=== PATIENT | female | born 1975 | race Caucasian/White ===

== ENCOUNTER 2022-03-30 14:47 | Outpatient (REF) | payer OTHER, SELFPAY ==
[2022-04-02 18:24] LABS: HPV mRNA E6/E7 rflx Not Detected (Not Detected)
== END 2022-03-30 14:48 | disposition home or self-care (01) ==
LOC: HO.LNP 14:47
PROVIDERS: PCP Internal Medicine; Visit Provider Obstetrics & Gynecology
DX: Z01.419 Encounter for gynecological examination (general) (routine) without abnormal findings (principal)
CPT/HCPCS: 87624; 88142

== ENCOUNTER 2022-05-20 10:28 | Outpatient (REF) | payer OTHER, SELFPAY ==
--- NOTE | ~2022-05-20 | MM_ITS ---
EXAMINATION: MM SCREENING DIGITAL BREAST TOMOSYNTHESIS, BILATERAL CLINICAL INFORMATION: Screening. Asymptomatic. Age 46. No prior breast imaging. The lifetime risk of breast cancer based on the Tyrer-Cuzick Model is 13%. COMPARISON: None (current study represents initial baseline exam). TECHNIQUE: Digital breast tomosynthesis is performed in both the craniocaudal and mediolateral oblique views along with computer-aided detection (CAD). Synthesized 2D images are generated from the tomosynthesis. FINDINGS: The breasts are extremely dense, which lowers the sensitivity of mammography (ACR BI-RADS breast composition Category d). There are no significant masses, abnormal calcifications, or other abnormalities. The axilla and skin contours are unremarkable. MM/MM tomosynthesis screening BI IMPRESSION: No mammographic evidence of malignancy. ASSESSMENT: BI-RADS 1: Negative RECOMMENDATION: Routine annual mammography screening. This patient's information was entered into a reminder system with a target due date for their next mammogram.
== END 2022-05-20 10:29 | disposition home or self-care (01) ==
LOC: HO.MAMMO 10:28
PROVIDERS: PCP Internal Medicine; Visit Provider Obstetrics & Gynecology
DX: Z12.31 Encounter for screening mammogram for malignant neoplasm of breast (principal)
CPT/HCPCS: 77063; 77067

== ENCOUNTER 2022-06-30 13:39 | Emergency (ER) | payer OTHER, SELFPAY ==
[2022-06-30 13:45] VITALS: BP 107/61; PULSE 96; RESP 16; TEMP 36.6; O2SAT 97; BMI 29.0
--- NOTE | 2022-06-30 13:47 | ED_ITS ---
HPI - General Adult General Chief complaint: Skin/Abscess/Foreign Body <DONNA Tinoco Last Filed: 06/30/22 14:31> Stated complaint: lump on head soreness <DONNA Tinoco Last Filed: 06/30/22 14:31> Time Seen by Provider: 06/30/22 14:27 <DONNA Tinoco Last Filed: 06/30/22 14:31> Source: patient <DONNA Malone Last Filed: 06/30/22 16:04> Mode of arrival: ambulatory <DONNA Malone Last Filed: 06/30/22 16:04> History of Present Illness HPI narrative: 47-year-old female with past medical history of anxiety/panic disorder, OCD, presenting to the ED complaining of cyst/abscess to right scalp x years, increasing in size over the past week. Denies drainage from area, fever/chills <DONNA Malone Last Filed: 06/30/22 16:04> Onset (ago): unknown <DONNA Malone Last Filed: 06/30/22 16:04> Related Data Home medications: Previous Rx's Medication Instructions Recorded fluoxetine 20 mg capsule 40 mg PO DAILY #180 caps 04/12/21 triamcinolone acetonide 0.5 % See Rx Instructions topical BID 04/12/21 topical cream #15 grams <DONNA Tinoco Last Filed: 06/30/22 14:31> Allergies/adverse reactions: Allergies Allergy/AdvReac Type Severity Reaction Status Date / Time cefaclor [From CECLOR] Allergy Unknown RASH Verified 03/30/22 14:51 JALAPENO PEPPERS Allergy Severe ANAPHYLAXIS Uncoded 03/30/22 14:51 Ceclor Allergy Unknown rash Uncoded 03/30/22 14:51 jalapenos Allergy Unknown anaphalaxis Uncoded 03/30/22 14:51 <DONNA Tinoco Last Filed: 06/30/22 14:31> Review of Systems Review of Systems: Constitutional: No Fever, No Chills ENT/Mouth: No Ear Pain, No Nasal Congestion, No sore throat, No Rhinorrhea, No Swallowing Difficulty Cardiovascular: No Chest Pain, No SOB Respiratory: No Cough, No Sputum Gastrointestinal: No Nausea, No Vomiting, No Diarrhea, No Constipation, No Abdominal pain Genitourinary: No Dysuria, No Hematuria, No Urgency, No Flank Pain Musculoskeletal: No joint pain, No Myalgias, No Joint Swelling Skin: + Skin Lesions, No rash Neuro: No Weakness, No Numbness, No Paresthesias <DONNA Malone - Last Filed: 06/30/22 16:04> Yes all other systems are reviewed and are negative <DONNA Malone - Last Filed: 06/30/22 16:04> Constitutional: Constitutional: Reports as per HPI <DONNA Malone - Last Filed: 06/30/22 16:04> [facility] Past Medical History Attestation statement: The following information was validated with the patient. <DONNA Malone - Last Filed: 06/30/22 16:04> Medical History: Medical History Panic disorder <DONNA Tinoco - Last Filed: 06/30/22 14:31> Surgical History: Surgical History History of cholecystectomy <DONNA Tinoco - Last Filed: 06/30/22 14:31> Family History Family History: Family History Mother No problems noted. Father No problems noted. <DONNA Tinoco - Last Filed: 06/30/22 14:31> Social History Social History: Social History Housing: Apartment Patient Tobacco Use Status: Never used Tobacco e-Cigarette/Vaping Use: Never Used Second Hand Smoke Exposure: No Advance Directives: No Advance Directives Information Provided: Yes service: No Current occupational status: disabled Cognitive needs: No Hearing needs: No Vision needs: No <DONNA Tinoco - Last Filed: 06/30/22 14:31> Physical Exam ED Vital Signs: Vital Signs - 24 hr 06/30/22 13:45 Temperature 98 F Pulse Rate 96 Respiratory Rate 16 Blood Pressure 107/61 Pulse Oximetry 97 Oxygen Delivery Method Room Air BMI result Body Mass Index 29.0 <DONNA Tinoco - Last Filed: 06/30/22 14:31> Vital Signs - 24 hr 06/30/22 13:45 Temperature 98 F Pulse Rate 96 Respiratory Rate 16 Blood Pressure 107/61 Pulse Oximetry 97 Oxygen Delivery Method Room Air BMI result Body Mass Index 29.0 <DONNA Malone - Last Filed: 06/30/22 16:04> Const General: cooperative, healthy appearing and no acute distress <DONNA Malone Last Filed: 06/30/22 16:04> Orientation/consciousness: patient oriented x3 <DONNA Malone Last Filed: 06/30/22 16:04> Limitations: no limitations <DONNA Malone - Last Filed: 06/30/22 16:04> HENMT Other: + small cyst with central fluctuance noted to right scalp/mastoid area. No overlying erythema, no induration, no warmth <DONNA Malone Last Filed: 06/30/22 16:04> Head: Yes normal to inspection, Yes atraumatic, No Reza's sign and No raccoon eyes <DONNA Malone Last Filed: 06/30/22 16:04> Ears: hearing grossly normal bilaterally <DONNA Malone - Last Filed: 06/30/22 16:04> General nose exam: Normal external nose present <DONNA Malone Last Filed: 06/30/22 16:04> Face and sinus: Yes normal facial exam <DONNA Malone Last Filed: 06/30/22 16:04> Eyes General: appearance normal, both eyes and all related structures <DONNA Malone Last Filed: 06/30/22 16:04> EOM: EOMs intact bilaterally <DONNA Malone - Last Filed: 06/30/22 16:04> Neck Neck: Yes normal visual inspection and Yes no meningeal signs <DONNA Malone Last Filed: 06/30/22 16:04> Resp Effort & Inspection: normal respiratory effort and no respiratory distress <DONNA Malone Last Filed: 06/30/22 16:04> Cardio Rate: regular rate <DONNA Malone Last Filed: 06/30/22 16:04> Heart sounds: S1 normal heart sound present and S2 normal heart sound present <DONNA Malone Last Filed: 06/30/22 16:04> Skin Rashes: no rashes <DONNA Malone Last Filed: 06/30/22 16:04> Neuro General: patient oriented x3, tone normal and no meningeal signs <DONNA Malone Last Filed: 06/30/22 16:04> Gait exam (Neuro): Normal gait present <DONNA Malone Last Filed: 06/30/22 16:04> Extrem General: Yes normal to inspection <DONNA Malone Last Filed: 06/30/22 16:04> Course Course Course Narrative: RME performed by Isabella Sanchez PA-C. Patient is a 47 year old assigned female at presenting to the emergency department with an abscess to the right scalp. Patient placed back in the waiting room pending room availability. <DONNA Tinoco Last Filed: 06/30/22 14:31> Medications Administered Discontinued Medications Generic Name Dose Route Start Last Admin Trade Name Freq PRN Reason Stop Dose Admin Lidocaine HCl 2 ml 06/30/22 14:41 06/30/22 14:58 Lidocaine Hcl 1 % Mpf 2 Ml Vial INFILTRATI 06/30/22 14:42 2 ml ONCE ONE Administration <DONNA Tinoco Last Filed: 06/30/22 14:31> Medications Administered Discontinued Medications Generic Name Dose Route Start Last Admin Trade Name Freq PRN Reason Stop Dose Admin Lidocaine HCl 2 ml 06/30/22 14:41 06/30/22 14:58 Lidocaine Hcl 1 % Mpf 2 Ml Vial INFILTRATI 06/30/22 14:42 2 ml ONCE ONE Administration <DONNA Malone Last Filed: 06/30/22 16:04> Procedures Abscess I/D Site: scalp <DONNA Malone Last Filed: 06/30/22 16:04> Side (if applicable): right <DONNA Malone Last Filed: 06/30/22 16:04> Local Anesthetic: lidocaine 1% <DONNA Malone Last Filed: 06/30/22 16:04> Amount of anesthesia used (mL): 1 <DONNA Malone Last Filed: 06/30/22 16:04> Technique: incised with blade <DONNA Malone - Last Filed: 06/30/22 16:04> Sent for culture/gram staining?: No <DONNA Malone Last Filed: 06/30/22 16:04> Packing used?: none <DONNA Malone - Last Filed: 06/30/22 16:04> Medical Decision Making Medical Decision Making MDM Narrative: 47-year-old female with past medical history of anxiety/panic disorder, OCD, presenting to the ED complaining of cyst/abscess to right scalp x years, increasing in size over the past week. On exam vital signs stable, NAD, nontoxi c appearing, concern for cyst vs abscess. No overlying cellulitis. Plan: I & D Please refer to course for remaining clinical decision making, interpretation of labs/imaging results, and discussions with consultants and/or family members. <DONNA Malone Last Filed: 06/30/22 16:04> Differential Diagnosis Differential Diagnoses: The differential diagnosis associated with the presentation includes <DONNA Malone Last Filed: 06/30/22 16:04> As above <DONNA Malone - Last Filed: 06/30/22 16:04> Admission/Observation Consideration of admission/observation: Escalation of care including admission/observation considered <DONNA Malone Last Filed: 06/30/22 16:04> Lab Data [facility] Lab Attestation statement: I reviewed the patient's lab results. <DONNA Malone Last Filed: 06/30/22 16:04> Radiology Impression Discussion of test interpretation with radiology: I have reviewed the radiologist's reading. <DONNA Malone Last Filed: 06/30/22 16:04> External Record Review External record reviewed: Inpatient record, Office record, Outpatient record, Prior outpatient labs, Prior outpatient radiology, Primary care record and Outside ED record <DONNA Malone Last Filed: 06/30/22 16:04> Discharge Plan Discharge Clinical Impression: Scalp cyst <DONNA Tinoco - Last Filed: 06/30/22 14:31> Patient Disposition: Home, Self-Care <DONNA Tinoco - Last Filed: 06/30/22 14:31> Instructions: Cyst (ED) <DONNA Tinoco - Last Filed: 06/30/22 14:31> Additional Instructions: Your cyst is drain today in the emergency department. Please follow-up with dermatology Keep a close eye on the area, if increases in size, develops redness, pus drainage or fever return to the ED <DONNA Tinoco - Last Filed: 06/30/22 14:31> Prescriptions: No Action fluoxetine 20 mg capsule 40 mg PO DAILY Qty: 180 8RF triamcinolone acetonide 0.5 % cream See Rx Instructions topical BID Qty: 15 8RF Rx Instructions: apply topical 2 times a day; <DONNA Tinoco - Last Filed: 06/30/22 14:31> Referrals: Minnie Patricio PA [Physician [employer]] - David Clark MD [Physician] - Evy Dixon PA-C [Physician [employer]] - Dorene Friend PA-C [Physician [employer]] - <DONNA Tinoco - Last Filed: 06/30/22 14:31>
[2022-06-30] MEDS: Lidocaine HCl 1 % MPF 2 ML VIAL INFILTRATI (14:58)
== END 2022-06-30 16:10 | disposition home or self-care (01) ==
PROVIDERS: Emergency Provider Emergency Medicine; PCP Internal Medicine
DX: L02.811 Cutaneous abscess of head [any part, except face] (principal); L72.9 Follicular cyst of the skin and subcutaneous tissue, unspecified; Z79.899 Other long term (current) drug therapy
CPT/HCPCS: 10060; 99282; 99284

== ENCOUNTER 2023-04-03 15:30 | Outpatient (AMB) | payer OTHER, SELFPAY ==
--- NOTE | 2023-04-03 15:43 | A.OFFVIS_ITS ---
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 No complaints. Last Pap/HPV was negative in 04/17 Last Mammogram was BI-RADS 1 in 05/18 No previous screening colonoscopy [facility] Medical History Panic disorder Surgical History History of cholecystectomy Family History Mother No problems noted. Father No problems noted. Social History Household Members: Family Housing: Apartment Alcohol intake: current Alcohol intake frequency: holidays/special occasions only Patient Tobacco Use Status: Never used Tobacco e-Cigarette/Vaping Use: Never Used Second Hand Smoke Exposure: No service: No Current occupational status: disabled Sexual orientation: Straight/Heterosexual Gender identity: Female Cognitive needs: No Hearing needs: No Vision needs: No Female Reproductive History Menstrual Age of Menarche: 14 Date of last menstrual period: 03/22/23 Total pregnancies: 0 Date of last pap smear: 03/31/22 Date of Mammogram: 05/20/22 Review of Systems Const All systems reviewed & are unremarkable except as noted in HPI and below Card Reports as per HPI Resp Reports as per HPI GI Reports as per HPI and Reports no additional complaints Reports as per HPI Physical Exam Vital Signs: BMI result Body Mass Index 31.5 Const General: cooperative, healthy appearing and comfortable Chest Chest palpation & inspection: normal inspection of the chest and normal palpation of entire chest wall Breast/axilla inspection: normal inspection of the breasts and normal inspection of the axillae Breast/axilla palpation: normal palpation of the breasts, normal palpation of the axillae and no axillary lymphadenopathy Resp Effort & Inspection: normal respiratory effort Auscultation: clear to auscultation bilaterally Percussion: percussion normal Cardio Palpation: normal PMI Rate: regular rate Rhythm: regular rhythm Heart sounds: no murmurs and no rubs Peripheral pulses: Peripheral pulses 2+ throughout GI Inspection: Yes normal to inspection Palpation (GI): Soft to palpation, nontender, no guarding, not rigid and No hepatosplenomegaly present Percussion: Yes normal to percussion Auscultation: normal bowel sounds Rectal Exam - Female: deferred General: Yes bladder normal to palpation External Female Exam: No lesion Speculum Exam - Vagina: normal appearance of the vagina, normal palpation, normal vaginal discharge and not erythematous Speculum Exam - Cervix: normal appearance of the cervix and normal palpation Bimanual exam- vagina & uterus: normal bimanual exam, normal palpation, uterine size normal, bladder normal to palpation, consistency normal and normal palpation Bimanual Exam- Adnexa, other: normal adnexae, no masses and no tenderness Assessment & Plan Assessment & Plan (1) Well woman exam: Code(s): Z01.419 - Encounter for gynecological examination (general) (routine) without abnormal findings Plan: Co testing not indicated this year. Counseled the patient about the recommended dietary allowance of 1200 mg of Calcium & 600 IU of vitamin D. Mammogram ordered for 05/19. The patient was referred to GI for screening colonoscopy . The patient was instructed to perform monthly self-breast exams and schedule annual exam in a year. All questions answered and the patient verbalized understanding. Orders: Orders MM tomosynthesis screening BI Today Z12.31 - Encounter for screening mammogram for malignant neoplasm of breast Referrals Gastroenterology Referral Z12.11 - Encounter for screening for malignant neoplasm of colon Coding Level of Care Code Est Pt Prev Care 40-64y(27033) Diagnoses Well woman exam Z01.419
[2023-04-03 15:44] VITALS: BP 108/66; BMI 31.5
== END 2023-04-03 16:08 | disposition home or self-care (01) ==
LOC: HO.HWS 15:30
PROVIDERS: PCP Internal Medicine; Visit Provider Obstetrics & Gynecology
DX: Z01.419 Encounter for gynecological examination (general) (routine) without abnormal findings (principal)
CPT/HCPCS: 99396

== ENCOUNTER → 2023-04-03 15:30 | Outpatient (BNVA) | payer OTHER, SELFPAY | PROVIDERS: PCP Internal Medicine; Visit Provider Obstetrics & Gynecology ==

== ENCOUNTER → 2023-05-29 14:33 | Outpatient (BNVA) | payer OTHER, SELFPAY | PROVIDERS: PCP Internal Medicine; Visit Provider Nurse Practitioner Family ==

== ENCOUNTER 2023-08-10 14:31 | Outpatient (AMB) | payer OTHER, SELFPAY ==
[2023-08-10 14:35] VITALS: BP 124/80; PULSE 145; O2SAT 99; BMI 31.3
--- NOTE | 2023-08-10 14:35 | MHC.OFFWIV ---
Intake Vital Signs 08/10/23 14:35 Height 5 ft 6 in Weight 194 lb 2 oz BMI 31.3 BP 124/80 Blood Pressure Location Lt brachial Position Sitting Pulse 145 H Pulse Source Pulse Oximeter Pulse Oximetry (%) 99 Oxygen Delivery Method Room Air Intake Visit Reasons: EP Evaluation for meds Intake Note: Pt presents to the office today for c/o medication refills. She states she has gone to long without seeing her PCP and has an appt with her PCP in August. Patient Tobacco Use Status: Never used Tobacco Allergies JALAPENO PEPPERS Allergy (Severe, Uncoded 08/10/23 14:38) ANAPHYLAXIS Ceclor Allergy (Unknown, Uncoded 08/10/23 14:38) rash HPI HPI Comments History of Present Illness Details 48 y/o female patient who presents to walk in clinic today for medication refills. Pt asking for Refill on Fluoxetine, she ran out of medications. She has an upcoming appointment with her PCP in August. [facility] Medical History Panic disorder Surgical History History of cholecystectomy Family History Mother No problems noted. Father No problems noted. Social History Household Members: Family Housing: Apartment Alcohol intake: current Alcohol intake frequency: holidays/special occasions only Patient Tobacco Use Status: Never used Tobacco e-Cigarette/Vaping Use: Never Used Second Hand Smoke Exposure: No service: No Current occupational status: disabled Sexual orientation: Straight/Heterosexual Gender identity: Female Cognitive needs: No Hearing needs: No Vision needs: No Female Reproductive History Menstrual Age of Menarche: 14 Review of Systems Const All systems reviewed & are unremarkable except as noted in HPI and below Physical Exam Vital Signs: Last Vital Signs Pulse 145 H 08/10/23 14:35 BP 124/80 08/10/23 14:35 Pulse Ox 99 08/10/23 14:35 Oxygen Delivery Method Room Air 08/10/23 14:35 BMI result Body Mass Index 31.3 Const General: comfortable and no acute distress Orientation/consciousness: patient oriented x3 Neuro General: patient oriented x3, gait normal and moves all extremities Psych Speech and movement: Normal speech and movement present Affect: normal affect Attitude: cooperative Thought process: Normal thought process present Assessment & Plan Assessment & Plan (1) Panic disorder: Code(s): F41.0 - Panic disorder [episodic paroxysmal anxiety] Plan: Refilled Fluoxetine for 90 days. Medications: Changed From fluoxetine 40 mg (2 x 20 mg) PO DAILY 180 caps 8RF F41.0 - Panic disorder [episodic paroxysmal anxiety] To fluoxetine 40 mg (2 x 20 mg) PO DAILY 90 days 180 caps 0RF F41.0 - Panic disorder [episodic paroxysmal anxiety] Coding Level of Care Code Est Pt Level 3 (63266) Diagnoses Panic disorder F41.0 Time Spent (min) 15
== END 2023-08-10 15:29 | disposition home or self-care (01) ==
PROVIDERS: PCP Internal Medicine; Visit Provider Nurse Practitioner Family
DX: F41.0 Panic disorder [episodic paroxysmal anxiety] (principal)
CPT/HCPCS: 99213

== ENCOUNTER 2023-09-21 14:30 | Outpatient (AMB) | payer OTHER, SELFPAY ==
[2023-09-21 14:39] VITALS: BP 120/76; PULSE 105; O2SAT 98; BMI 31.0
--- NOTE | 2023-09-21 14:39 | A.OFFPC_ITS ---
Vital Signs 09/21/23 14:39 Height 5 ft 6 in Weight 192 lb BMI 31.0 BP 120/76 Blood Pressure Location Lt brachial Position Sitting Pulse 105 H Pulse Source Pulse Oximeter Pulse Oximetry (%) 98 Oxygen Delivery Method Room Air Intake Visit Reasons: Annual Exam/ med f/u Electrical Subcontractor Required: No Naturopathic Oncology Provider: Not Required per policy Accompanied by: Self / Same As Patient Allergies JALAPENO PEPPERS Allergy (Severe, Uncoded 09/21/23 14:40) ANAPHYLAXIS Ceclor Allergy (Unknown, Uncoded 09/21/23 14:40) rash Medication List - Last Reconciled 09/24/23 by Dion Villalobos MD bisacodyl (Dulcolax (bisacodyl)) 10 mg (2 x 5 mg) PO BEDTIME COVID-19 antigen test (BinaxNOW COVID-19 Ag Card kit) As directed fluoxetine 40 mg (2 x 20 mg) PO DAILY 90 days polyethylene glycol 3350 (Miralax) 238 grams PO ONCE triamcinolone acetonide 0.5% apply topical 2 times a day; Tobacco use date assessed: 09/21/23 Dental Screening Dental Screen Date: 09/21/23 Did you have a dental visit in the last 12 months?: No Did you have a dental problem in the last 6 months where you did not have access to dental care?: No Was dental information given to patient?: Patient has dentist HPI Annual Exam/ med f/u HPI Details has OCD and sees therapist [facility] Medical History Panic disorder Surgical History History of cholecystectomy Family History Mother No problems noted. Father No problems noted. Social History Household Members: Family Housing: Apartment Alcohol intake: current Alcohol intake frequency: holidays/special occasions only Patient Tobacco Use Status: Never used Tobacco e-Cigarette/Vaping Use: Never Used Second Hand Smoke Exposure: No service: No Current occupational status: disabled Sexual orientation: Straight/Heterosexual Gender identity: Female Cognitive needs: No Hearing needs: No Vision needs: No Female Reproductive History Menstrual Age of Menarche: 14 Questionnaire PHQ-9 Over the last 2 weeks, how often have you been bothered by any of the following problems? 1. Little interest or pleasure in doing things: several days 2. Feeling down, depressed, or hopeless: several days 3. Trouble falling or staying asleep, or sleeping too much: several days 4. Feeling tired or having little energy: more than half the days 5. Poor appetite or overeating: several days 6. Feeling bad about yourself - or that you are a failure or have let yourself or your family down: several days 7. Trouble concentrating on things, such as reading the newspaper or watching television: not at all 8. Moving or speaking so slowly that other people could have noticed. Or the opposite - being so fidgety or restless that you have been moving around a lot more than usual: not at all 9. Thoughts that you would be better off or of hurting yourself in some way: not at all Total score: 7 Source: Developed by Drs. Gerardo Prince, An Coffey, Ron Sandoval and colleagues, with an educational wong from [employer]. Thrive Questionnaire Date Thrive assessed: 09/21/23 I am a: Patient What is your living situation today?: I have a steady place to live Within the past 12 months, did the food you bought not last and you didn't have the money to get more?: Never true Within the past 12 months, did you worry whether your food would run out before you got money to buy more?: Never true Do you have trouble paying for medicines?: No Do you have trouble getting transportation to medical appointments?: No Do you have trouble paying your heating and electricity bill?: No Do you have trouble taking care of your child, family member or friend?: No Do you have trouble with day-to-day activities such as bathing, preparing meals, shopping, managing finances, etc.?: No Are you currently unemployed and looking for a job?: No Are you interested in more education?: No Please select the resources that you would like help with: None THRIVE Score: 0 AUDIT C Alcohol Use Questionnaire (AUDIT-C) 1. How often do you have a drink containing alcohol?: Monthly or less 2. How many drinks containing alcohol do you have on a typical day when you are drinking?: 1 or 2 3. How often do you have six or more drinks on one occasion?: Never Total Score: 1 Score Reviewed/Action Taken: Yes JODIE-7 AMB Questionnaire JODIE-7 Date JODIE - 7 assessed: 09/21/23 Feeling nervous, anxious, or on edge: 1 = Several days Not being able to stop or control worryin = Several days Worrying too much about different things: 1 = Several days Trouble relaxin = Several days Being so restless that it is hard to sit still: 0 = Not at all Becoming easily annoyed or irritable: 1 = Several days Feeling afraid as if something awful might happen: 1 = Several days Total JODIE-7 score (0-4 normal; 5-9 mild; 10-14 moderate; 15-21 severe): 6 Source: Developed by Drs. Gerardo Prince, An Coffey, Ron Sandoval and colleagues, with an educational wong from [employer]. Review of Systems Const Denies chills, Denies fatigue, Denies headache(s) and Denies weight loss Eyes Denies change in vision, Denies diplopia and Denies eye pain ENT Denies vertigo, Denies dizziness, Denies headache(s) and Denies nasal discharge Card Denies chest pain, Denies rapid heart rate and Denies dyspnea on exertion Resp Denies chest congestion, Denies cough, Denies pain with cough and Denies dyspnea on exertion GI Denies abdominal pain, Denies hematochezia and Denies change in bowel habits Musc Denies myalgias, Denies arthralgias and Denies joint swelling Skin/Breast Denies lesions and Denies unusual bruising Neuro Denies vertigo, Denies dizziness, Denies headache(s) and Denies focal weakness Endo Denies fatigue Physical exam (Primary Care) Vital Signs: Last Vital Signs Pulse 105 H 09/21/23 14:39 BP 120/76 09/21/23 14:39 Pulse Ox 98 09/21/23 14:39 Oxygen Delivery Method Room Air 09/21/23 14:39 BMI result Body Mass Index 31.0 Tobacco/Smoking Status: Tobacco use Status Tobacco use date assessed 09/21/23 09/21/23 14:48 Patient Tobacco Use Status Never used Tobacco 09/21/23 14:48 e-Cigarette/Vaping Use Never Used 09/21/23 14:48 PHQ-9: PHQ-9 Score PHQ-9: Total score 7 09/21/23 14:48 Thrive Assessment: Date of Thrive Assessment Date Thrive assessed 09/21/23 09/21/23 14:48 Const General: cooperative, healthy appearing and no acute distress Orientation/consciousness: oriented to person, oriented to place and oriented to time HENMT Head: Yes normal to inspection, Yes normocephalic and Yes atraumatic Mouth: Normal oral and palatal mucosa present and tongue normal Throat: Yes posterior oropharynx normal and Yes uvula midline Eyes General: appearance normal, both eyes and all related structures Neck Neck: Yes normal visual inspection, Yes full ROM and Yes no lymphadenopathy Thyroid: Thyroid normal Carotids: normal carotid upstroke Chest Chest palpation & inspection: normal inspection of the chest Resp Effort & Inspection: normal respiratory effort and able to speak in complete sentences Auscultation: clear to auscultation bilaterally Cardio Jugular venous distension: no JVD Palpation: normal PMI Rate: regular rate Rhythm: regular rhythm Heart sounds: S1 normal heart sound present and S2 normal heart sound present GI Inspection: Yes normal to inspection Palpation (GI): Soft to palpation and No hepatosplenomegaly present Auscultation: normal bowel sounds General: Yes no CVA tenderness Back/Spine/Pelvis Back: no CVA tenderness Skin General skin exam: no rashes or lesions noted Neuro General: oriented to person, oriented to place and oriented to time Extrem General: Yes normal to inspection and Yes full ROM Assessment and Plan Assessment & Plan (1) Physical exam: Code(s): Z00.00 - Encounter for general adult medical examination without abnormal findings Plan: stable; do labs (2) OCD (obsessive compulsive disorder): Code(s): F42.9 - Obsessive-compulsive disorder, unspecified Plan: cont with therapy Orders: Orders Lipid Panel 09/21/23 Z13.220 - Encounter for screening for lipoid disorders Complete Blood Count Auto Diff 09/21/23 Z13.0 - Encounter for screening for diseases of the blood and blood-forming organs and certain disorders involving the immune mechanism Comprehensive [place]. Panel Fast 09/21/23 Z13.9 - Encounter for screening, unspecified Thyroid Stimulating Hormone 09/21/23 Z13.29 - Encounter for screening for other suspected endocrine disorder Medications: Refilled triamcinolone acetonide 0.5% apply topical 2 times a day; 15 grams 8RF fluoxetine 40 mg (2 x 20 mg) PO DAILY 90 days 180 caps 8RF F41.0 - Panic disorder [episodic paroxysmal anxiety] Coding Level of Care Code New Pt Prev Care 40-64y(85882) Diagnoses Physical exam Z00.00 OCD (obsessive compulsive disorder) F42.9 Additional Codes PHQ-9 - 38817 - PHQ-9 Billing: ([id number])
== END 2023-09-21 15:03 | disposition home or self-care (01) ==
PROVIDERS: PCP Internal Medicine; Visit Provider Internal Medicine
DX: Z00.00 Encounter for general adult medical examination without abnormal findings (principal); F42.9 Obsessive-compulsive disorder, unspecified
CPT/HCPCS: 99396

== ENCOUNTER 2023-12-11 11:00 | Day surgery (SDC) | payer OTHER, SELFPAY ==
--- NOTE | 2023-12-10 12:19 | P.CONAN_ITS ---
Documented by User: Kari Hannah NP 12/10/23 12:20 HPI - Anesthesia Eval Consult details Narrative: 48yo F for Colonoscopy PMFSH Active Problems Active Problems: All Active Problems Well woman exam (Acute) OCD (obsessive compulsive disorder) (Acute) Physical exam (Acute) Tongue lesion (Acute) Panic disorder (Acute) Past Medical History Medical History Panic disorder Family History Family History Mother No problems noted. Father No problems noted. Surgical History Surgical History History of cholecystectomy Social History Social History Household Members: Family Housing: Apartment Are you a primary rn homecare to a significant other at home: No Do you presently have visiting nurse or other home services: No Alcohol intake: current Alcohol intake frequency: does not drink Patient Tobacco Use Status: Never used Tobacco e-Cigarette/Vaping Use: Never Used Second Hand Smoke Exposure: No Use of substances other than those prescribed or required for medical reasons: No Have you been hit, kicked, punched, or otherwise hurt by someone within the past year? If so, by whom?: No Are you DNR?: No Advance Directives: No Advance Directives Information Provided: Yes Advance Directives on File: No Recently lost weight without trying: No Eating poorly because of decreased appetite: No Nutrition Risks: No Nutritional Risk Patient : No : No Poor oral hygiene: No service: No Current occupational status: disabled Sexual orientation: Straight/Heterosexual Gender identity: Female Cognitive needs: No Hearing needs: No Vision needs: No Meds Allergies Allergy/AdvReac Type Severity Reaction Status Date / Time JALAPENO PEPPERS Allergy Severe ANAPHYLAXIS Uncoded 09/21/23 14:40 Ceclor Allergy Unknown rash Uncoded 09/21/23 14:40 Assessment and Plan Assessment Anesthesia Assessment: Chart Reviewed Documented by User: Elana Naqvi MD 12/11/23 13:19 [facility] Past Medical History Medical History Panic disorder Family History Family History Mother No problems noted. Father No problems noted. Family history of problems with anesthesia: No Surgical History Surgical History History of cholecystectomy History of Problems with Anesthesia: No Social History Social History Household Members: Family Housing: Apartment Are you a primary rn homecare to a significant other at home: No Do you presently have visiting nurse or other home services: No Alcohol intake: current Alcohol intake frequency: does not drink Patient Tobacco Use Status: Never used Tobacco e-Cigarette/Vaping Use: Never Used Second Hand Smoke Exposure: No Use of substances other than those prescribed or required for medical reasons: No Have you been hit, kicked, punched, or otherwise hurt by someone within the past year? If so, by whom?: No Are you DNR?: No Advance Directives: No Advance Directives Information Provided: Yes Advance Directives on File: No Recently lost weight without trying: No Eating poorly because of decreased appetite: No Nutrition Risks: No Nutritional Risk Patient : No : No Poor oral hygiene: No service: No Current occupational status: disabled Sexual orientation: Straight/Heterosexual Gender identity: Female Cognitive needs: No Hearing needs: No Vision needs: No Meds Allergies Allergy/AdvReac Type Severity Reaction Status Date / Time JALAPENO PEPPERS Allergy Severe ANAPHYLAXIS Uncoded 09/21/23 14:40 Ceclor Allergy Unknown rash Uncoded 09/21/23 14:40 Exam Airway Mallampati Class: II TM Dist: >3cm Heart: rrr Lungs: cta Assessment and Plan Assessment Anesthesia Assessment: Anesthesia Plan Discussed Final Anesthetic Review Family History of Problems with Anesthesia: No History of Problems with Anesthesia: No NPO: Yes ASA Class: II Final Preanesthetic Review: No Changes in Pt Med Stat, Meds/Allgs Chart Reviewed, Consent Obtained/Reviewed and Anes Risks/Benef Reviewed Patient Risk: Low Procedure Risk: Low Anesthetic Plan Anesthetic Plan: MAC: Disposition: Standard PACU
--- NOTE | 2023-12-11 12:03 | MHC.SHP ---
Pre-Procedural Eval Section A - 24 Hr Update-Section A only Date of Service: 12/11/23 Section B - Complete if H&P > 30 days Chief Complaint: Encounter for screening for malignant neoplasm of Details of Present Illness: History of non-Hodgkin's lymphoma with radiation to the chest Panic disorder Surgical History History of cholecystectomy Present Medications: see Short Stay Collaborative assessment Allergies: Allergies Allergy/AdvReac Type Severity Reaction Status Date / Time JALAPENO PEPPERS Allergy Severe ANAPHYLAXIS Uncoded 09/21/23 14:40 Ceclor Allergy Unknown rash Uncoded 09/21/23 14:40 Review of Systems Review of Systems Comment: 10 point ROS negative Exam Exam Comment: Gen appear: No acute distress HEENT: no icterus Chest: No overt resp distress Abd: soft, nontender, nondistended Psych: Stable affect, answering questions appropriately Neuro: A/Ox3 noted to move all extremities spontaneously Ext: no peripheral edema Plan Diagnosis/Plan: Unchanged I have reviewed the history and physical and performed a pertinent physical examination on my patient. No changes have occurred unless specified. Time Spent With Patient Time: Total time managing care of this patient today ____ minutes.
[2023-12-11 12:19] VITALS: BMI 31.0
[2023-12-11 12:50] LABS: UPreg QC Valid YES; Urine Pregnancy NEGATIVE (NEGATIVE)
[2023-12-11 13:15] VITALS: BP 110/74; PULSE 90; RESP 14; TEMP 36.6; O2SAT 96
[2023-12-11] MEDS: Lactated Ringers 1,000 ML 100 ML IVCONT (13:17)
--- NOTE | 2023-12-11 13:32 | P.OPN-COLO_ITS ---
Colonoscopy Operative Note Operative Note Date of Service: 12/11/23 Narrative: Procedure: Colonoscopy Indication: Screening Endoscopist: Meme Ramirez MD Anesthesia Provider: Karen Murray CRNA Anesthesia type: MAC Instrument: Olympus [id number]-H190L Consent: Indication, risks vs benefits, and alternatives were discussed with the patient who gave written informed consent to proceed. EKG, pulse, pulse oximetry and blood pressure were monitored throughout the procedure. Please see anesthesia flowsheet. Procedure: The patient was brought to the procedure room and placed in the left lateral decubitus position. IV medications were administered by the anesthesia provider in attendance. A digital rectal exam was performed which was normal. A distal attachment cap was affixed to the tip of the colonoscope which was then inserted through the anus and advanced through the colon to the cecum at 75 cm,and terminal ileum. Appendiceal orifice and ileocecal valve were identified. Mucosa was carefully examined under high definition white light as the instrument was slowly withdrawn in a retrograde panoramic fashion. Retroflexion was performed in rectum. The procedure was not difficult. There were no immediate obvious complications. The quality of the prep was BBPS: 2+3+3 = adequate Withdrawal time 9 minutes. Limitations: No limitations. Findings: Mucosa: Normal to cecum and terminal ileum. Protruding lesions: * Medium internal hemorrhoids without stigmata of recent bleeding. Impression: 1. Normal colon and terminal ileum mucosa 2. Internal hemorrhoids Recommendations: - recommend repeat colonoscopy for asymptomatic colorectal cancer screening in 10 years
[2023-12-11 14:02] VITALS: BP 100/39; PULSE 82; RESP 16; TEMP 36.2; O2SAT 99
[2023-12-11 14:17] VITALS: BP 103/67; PULSE 77; RESP 16; TEMP 36.2; O2SAT 98
== END 2023-12-11 14:47 | disposition home or self-care (01) ==
PROVIDERS: Nurse Practitioner; PCP Internal Medicine; Visit Provider Internal Medicine
PROC: 0DJD8ZZ Inspection of Lower Intestinal Tract, Via Natural or Artificial Opening Endoscopic (ICD-10-PCS; CPT 45378; principal; 2023-12-11 12:30)
DX: Z12.11 Encounter for screening for malignant neoplasm of colon (principal); K64.8 Other hemorrhoids; F41.0 Panic disorder [episodic paroxysmal anxiety]; Z79.899 Other long term (current) drug therapy
CPT/HCPCS: G0121; 81025; J2704

== ENCOUNTER → 2023-12-11 11:00 | Outpatient (BNV) | payer OTHER, SELFPAY | PROVIDERS: PCP Internal Medicine; Visit Provider Internal Medicine | DX: Z12.11 Encounter for screening for malignant neoplasm of colon (principal); K64.8 Other hemorrhoids | CPT/HCPCS: 45378 ==

== ENCOUNTER 2023-12-25 13:48 | Outpatient (AMB) | payer OTHER, SELFPAY ==
[2023-12-25 13:51] VITALS: BP 104/80; PULSE 106; O2SAT 97; BMI 31.2
--- NOTE | 2023-12-25 13:51 | A.OFFVIS_ITS ---
Vital Signs 12/25/23 13:51 Height 5 ft 6 in Weight 193 lb 9.054 oz BMI 31.2 BP 104/80 Blood Pressure Location Lt brachial Position Sitting Pulse 106 H Pulse Source Pulse Oximeter Pulse Oximetry (%) 97 Oxygen Delivery Method Room Air Intake Visit Reasons: s/P Derry; Dr. walters Intake Note: Haley presents in office today for a scheduled s/p FUV. CC; Pt reports that they have been experiencing abnormal bowel movements since having their procedure. Pt has not been able to return to normal bathroom habits. Pt has been experiencing GI upset after the first meal of the day and will continue until around lunch time. Pt is also concerned regarding possible melena/hematochezia that they noticed as of today. Pt states that the bowl of the toilet appeared to be pink in color. Pt does not recall having any intake of any foods that would possibly cause this color. Sleever Required: No Allergies Peppers, Jalapeno Allergy (Severe, Verified 12/25/23 14:02) Anaphylaxis cefaclor [From Ceclor] Allergy (Intermediate, Verified 12/25/23 14:02) Rash HPI HPI s/P Derry; Dr. walters: Details: LAST VISIT Screen for colon cancer Plan Patient denies any GI, cardiac or respiratory symptoms.? Denies any issues with anesthesia in the past.? Denies any history of sleep apnea.? No history infectious diseases in the past or present.? Not on any anticoagulation therapy.? No family or personal history of colon cancer or polyps.? Patient denies melena, hematochezia, unintentional weight loss or ribbon like stools.? Discussed at length the pre-procedure,? prep, diet & medications as well as what to expect prior, during and after the procedure.?? Stressed the importance of good bowel prep. ?Recommended the use of Vaseline or Calmoseptine OTC & baby wipes with bowel movements to promote comfort.? ?Patient verbalizes understanding and agrees to plan of care.? She was given the opportunity to ask questions and all questions answered.? We will see her after the procedure.? Medications New bisacodyl (Dulcolax (bisacodyl)) Start taking 2 tablet every night 7 days before the procedure and 1 day before procedure take 4 tablets at noon time followed by MiraLax prep 10 mg (2 x 5 mg) PO BEDTIME 16 tabs 0RF Z12.11 polyethylene glycol 3350 (Miralax) As directed by gastroenterology [facility] at [facility] 238 grams PO ONCE 238 grams 0RF Z12.11 COLONOSCOPY Findings: Mucosa: Normal to cecum and terminal ileum. Protruding lesions: * Medium internal hemorrhoids without stigmata of recent bleeding. Impression: 1. Normal colon and terminal ileum mucosa 2. Internal hemorrhoids Recommendations: - recommend repeat colonoscopy for asymptomatic colorectal cancer screening in 10 years TODAY'S VISIT Patient is here today for follow-up and to discuss colonoscopy results. Patient denies any ill effects from the prep, anesthesia or procedure itself, however patient reports that she feels like her bowel movements have change since the procedure. Patient reports that she frequently now has postprandial loose stools. Patient does admit to have history of cholecystectomy and was told in the past that she will have postprandial loose stools depending on what she eats. Patient is not avoiding any particular food and it is not on any diet. Patient reports pink water after bowel movement. Patient was told that she has internal hemorrhoids. Patient denies any rectal pain, discomfort. Denies any actual hematochezia or melena. Patient reports that she does not eat enough vegetables or fiber. [facility] Medical History Panic disorder Surgical History H/O colonoscopy History of cholecystectomy Family History Mother No problems noted. Father No problems noted. Social History Household Members: Family Housing: Apartment Are you a primary janitor caretaker to a significant other at home: No Do you presently have visiting nurse or other home services: No Alcohol intake: current Alcohol intake frequency: does not drink Patient Tobacco Use Status: Never used Tobacco e-Cigarette/Vaping Use: Never Used Second Hand Smoke Exposure: No service: No Current occupational status: disabled Sexual orientation: Straight/Heterosexual Gender identity: Female Cognitive needs: No Hearing needs: No Vision needs: No Female Reproductive History Menstrual Age of Menarche: 14 Review of Systems Const Denies weight gain and Denies weight loss ENT Reports no additional complaints, Denies dysphagia and Denies odynophagia Card Reports no additional complaints Resp Reports no additional complaints GI Denies abdominal pain, Denies belching, Denies melena, Denies bloating, Reports hematochezia, Denies change in bowel habits, Denies dysphagia, Denies excessive flatus, Denies dyspepsia, Denies heartburn, Denies diarrhea, Reports loose stools, Denies nausea, Denies odynophagia and Denies vomiting Reports no additional complaints Musc Reports no additional complaints Neuro Reports no additional complaints Psych Reports no additional complaints Endo Reports no additional complaints Physical Exam Vital Signs: Last Vital Signs Pulse 106 H 12/25/23 13:51 BP 104/80 12/25/23 13:51 Pulse Ox 97 12/25/23 13:51 Oxygen Delivery Method Room Air 12/25/23 13:51 BMI result Body Mass Index 31.2 Const General: healthy appearing, no acute distress and well developed Nutritional Appearance: obese Orientation/consciousness: patient oriented x3 Resp Effort & Inspection: normal respiratory effort, able to speak in complete sent ences, no tracheal deviation and symmetric chest movement Auscultation: clear to auscultation bilaterally Cardio Rate: regular rate GI Inspection: Yes normal to inspection, No distended and Yes obesity Palpation (GI): Soft to palpation, not firm, nontender and No hepatosplenomegaly present Auscultation: normal bowel sounds General: Yes no CVA tenderness Back/Spine/Pelvis Back: no CVA tenderness Skin General skin exam: elasticity normal, turgor normal and dry skin Neuro General: patient oriented x3 Psych Appearance: grossly normal Mental Status: mental status grossly normal Assessment & Plan Assessment & Plan (1) Status post colonoscopy: Code(s): Z98.890 - Other specified postprocedural states (2) IBS (irritable bowel syndrome): Code(s): K58.9 - Irritable bowel syndrome, unspecified Qualifiers: Irritable bowel syndrome type: with both diarrhea and constipation Qualified Code(s): K58.2 - Mixed irritable bowel syndrome (3) Internal hemorrhoids without complication: Code(s): K64.8 - Other hemorrhoids Plan Patient was encouraged to increase fluid intake and activity to promote better bowel motility. Patient will try to take probiotic and fiber. Increase fiber in her diet to help her bulk stools. Avoid any food that can trigger her postprandial loose stools. Patient will follow-up in the office in 3 months, sooner on as needed basis. She is agreeable to this plan and verbalizes understanding of instructions. She was given the opportunity to ask questions and all questions answered. Thank you for allowing me to participate in her care Coding Level of Care Code Est Pt Level 3 (83383) Diagnoses Status post colonoscopy Z98.890 Irritable bowel syndrome with both constipation and diarrhea K58.2 Irritable bowel syndrome type: with both diarrhea and constipation Internal hemorrhoids without complication K64.8 Time Spent (min) 25 Comment 15 minutes spent with patient and additional 10 minutes spent reviewing her records
== END 2023-12-25 14:22 | disposition home or self-care (01) ==
PROVIDERS: PCP Internal Medicine; Visit Provider Nurse Practitioner Family
DX: Z98.890 Other specified postprocedural states (principal); K58.2 Mixed irritable bowel syndrome; K64.8 Other hemorrhoids
CPT/HCPCS: 99213

== ENCOUNTER → 2023-12-25 13:48 | Outpatient (BNVA) | payer OTHER, SELFPAY | PROVIDERS: PCP Internal Medicine; Visit Provider Nurse Practitioner Family | DX: K58.2 Mixed irritable bowel syndrome (principal); K64.8 Other hemorrhoids; Z98.890 Other specified postprocedural states | CPT/HCPCS: 99212 ==

== ENCOUNTER 2024-04-30 13:20 | Outpatient (REF) | payer OTHER, SELFPAY ==
[2024-04-30 13:28] LABS: MANUAL DIFF FLAG NO
[2024-04-30 13:37] LABS: Basophils Percent Auto 0.5 % (0-2); Eosinophils Absolute Auto 0.3 X10*3/uL (0.0-0.4); Eosinophils Percent Auto 4.1 % (0-4); Hematocrit 42.5 % (37.0-47.0); Hemoglobin 13.8 g/dl (12.0-16.0); Imm Gran Abs Auto 0.02 X10*3/uL (0.00-0.03); Imm Gran Pct Auto 0.3 % (0.0-0.4); Lymphocytes Percent Auto 27.3 % (20-40); Mean Corpuscular HGB Conc 32.5 g/dl (31.0-35.0); Mean Corpuscular Hemoglobin 28.6 pg (27.0-33.0); Mean Corpuscular Volume 88.2 fL (80.0-98.0); Mean Platelet Volume 9.3 fL (9.4-12.3); Monocytes Absolute Auto 0.6 X10*3/uL (0.1-1.2); Monocytes Percent Auto 8.7 % (2-11); Neutrophils Absolute Auto 4.3 x10*3/uL (2.0-8.3); Neutrophils Percent Auto 59.1 % (45-73); Platelet Count 443 X10*3/uL (160-400); Red Blood Count 4.82 X10*6/uL (4.20-5.50); Red Cell Distribution Width 14.6 % (11.0-16.0); White Blood Count 7.4 X10*3/uL (4.8-10.8)
[2024-04-30 14:18] LABS: Alanine Aminotransferase 26 U/L (0-31); Albumin Level 4.7 g/dL (3.5-5.0); Alkaline Phosphatase 89 U/L (39-117); Anion Gap 9 (12-20); Aspartate Amino Transferase 24 U/L (5-31); Bilirubin Total 0.4 mg/dL (0.0-1.0); Blood Urea Nitrogen 9 mg/dL (9-16); Calcium 9.9 mg/dL (8.4-10.2); Carbon Dioxide 27 mmol/L (22-29); Chloride 107 mmol/L (96-108); Cholesterol 273 mg/dL (<200); Estimated Glomerular Filt Rate > 60; Glucose Fasting 85 mg/dL (60-99); HDL Cholesterol 59 mg/dL (>40); LDL Cholesterol Calculated 188 mg/dL (<100); Potassium 4.2 mmol/L (3.3-5.1); Sodium 139 mmol/L (135-145); Total Protein 8.8 g/dL (6.5-8.0); Triglycerides 130 mg/dL (<150)
[2024-04-30 14:29] LABS: Thyroid Stimulating Hormone 1.62 uIU/mL (0.32-4.0)
== END 2024-04-30 13:21 | disposition home or self-care (01) ==
LOC: HO.LAB 13:20
PROVIDERS: PCP Internal Medicine; Visit Provider Internal Medicine
DX: Z13.220 Encounter for screening for lipoid disorders (principal); Z13.0 Encounter for screening for diseases of the blood and blood-forming organs and certain disorders involving the immune mechanism; Z13.9 Encounter for screening, unspecified; Z13.29 Encounter for screening for other suspected endocrine disorder
CPT/HCPCS: 36415; 80053; 80061; 84443; 85025

== ENCOUNTER 2024-05-05 10:29 | Outpatient (AMB) | payer OTHER, SELFPAY ==
--- NOTE | 2024-05-05 10:37 | MHC.PC.OV ---
Vital Signs 05/05/24 10:40 Height 5 ft 6 in Weight 194 lb BMI 31.3 BP 130/76 Blood Pressure Location Lt brachial Position Sitting Pulse 107 H Pulse Source Pulse Oximeter Temp 97.1 F Temp Source Skin Pulse Oximetry (%) 98 Oxygen Delivery Method Room Air Intake Visit Reasons: 6mth f/u Intake Note: Patient is here to follow up on Panic disorder. Recovery Analyst Required: No Storage Facility Housekeeper: Not Required per policy Accompanied by: Self / Same As Patient Allergies Peppers, Jalapeno Allergy (Severe, Verified 05/05/24 10:40) Anaphylaxis cefaclor [From Ceclor] Allergy (Intermediate, Verified 05/05/24 10:40) Rash Medication List - Last Reconciled 05/05/24 by Dion Villalobos MD fluoxetine 40 mg (2 x 20 mg) PO DAILY 90 days triamcinolone acetonide 0.5% apply topical 2 times a day; Tobacco use date assessed: 05/05/24 Dental Screening Dental Screen Date: 05/05/24 Did you have a dental visit in the last 12 months?: No Did you have a dental problem in the last 6 months where you did not have access to dental care?: No Was dental information given to patient?: No HPI 6mth f/u HPI Details depression on rx; doing well and compliant [facility] Medical History Panic disorder Surgical History H/O colonoscopy History of cholecystectomy Family History (Updated 05/05/24 @ 10:37 by CHEYENNE Bush) Mother No problems noted. Father No problems noted. Social History Household Members: Family Housing: Apartment Are you a primary health care specialist to a significant other at home: No Do you presently have visiting nurse or other home services: No Alcohol intake: current Alcohol intake frequency: does not drink Patient Tobacco Use Status: Never used Tobacco e-Cigarette/Vaping Use: Never Used Second Hand Smoke Exposure: No service: No Current occupational status: disabled Sexual orientation: Straight/Heterosexual Gender identity: Female Cognitive needs: No Hearing needs: No Vision needs: Yes (Glasses) Female Reproductive History Menstrual Age of Menarche: 14 Questionnaire PHQ-9 Over the last 2 weeks, how often have you been bothered by any of the following problems? 1. Little interest or pleasure in doing things: not at all 2. Feeling down, depressed, or hopeless: more than half the days 3. Trouble falling or staying asleep, or sleeping too much: not at all 4. Feeling tired or having little energy: not at all 5. Poor appetite or overeating: not at all 6. Feeling bad about yourself - or that you are a failure or have let yourself or your family down: not at all 7. Trouble concentrating on things, such as reading the newspaper or watching television: not at all 8. Moving or speaking so slowly that other people could have noticed. Or the opposite - being so fidgety or restless that you have been moving around a lot more than usual: not at all 9. Thoughts that you would be better off or of hurting yourself in some way: not at all Total score: 2 Depression Screening Interpretation: Negative Depression Screening Done: Yes Source: Developed by Drs. Gerardo Prince, An Coffey, Ron Sandoval and colleagues, with an educational wong from [employer]. Thrive Questionnaire Date Thrive assessed: 05/05/24 I am a: Patient What is your living situation today?: I have a steady place to live Within the past 12 months, did the food you bought not last and you didn't have the money to get more?: Never true Within the past 12 months, did you worry whether your food would run out before you got money to buy more?: Never true Do you have trouble paying for medicines?: No Do you have trouble getting transportation to medical appointments?: No Do you have trouble paying your heating and electricity bill?: No Do you have trouble taking care of your child, family member or friend?: No Do you have trouble with day-to-day activities such as bathing, preparing meals, shopping, managing finances, etc.?: No Are you currently unemployed and looking for a job?: No Are you interested in more education?: No Please select the resources that you would like help with: None Currently or been in a relationship where the following occur: No concerns reported THRIVE Score: 0 AUDIT C Alcohol Use Questionnaire (AUDIT-C) 1. How often do you have a drink containing alcohol?: Monthly or less 2. How many drinks containing alcohol do you have on a typical day when you are drinking?: 1 or 2 Total Score: 1 JODIE-7 AMB Questionnaire JODIE-7 Date JODIE - 7 assessed: 05/05/24 Feeling nervous, anxious, or on edge: 0 = Not at all Not being able to stop or control worryin = Not at all Worrying too much about different things: 0 = Not at all Trouble relaxin = Not at all Being so restless that it is hard to sit still: 0 = Not at all Becoming easily annoyed or irritable: 0 = Not at all Feeling afraid as if something awful might happen: 0 = Not at all Total JODIE-7 score (0-4 normal; 5-9 mild; 10-14 moderate; 15-21 severe): 0 Source: Developed by Drs. Gerardo Prince, An Coffey, Ron Sandoval and colleagues, with an educational wong from [employer]. Review of Systems Const Denies chills, Denies headache(s) and Denies weight loss ENT Denies headache(s) Card Denies chest pain, Denies syncope, Denies irregular heart rhythm and Denies dyspnea Resp Denies chest congestion, Denies cough and Denies dyspnea GI Denies abdominal pain, Denies change in stool character, Denies nausea and Denies vomiting Musc Denies deformity and Denies joint swelling Neuro Denies syncope and Denies headache(s) Physical exam (Primary Care) Vital Signs: Last Vital Signs Temp 97.1 F 05/05/24 10:40 Pulse 107 H 05/05/24 10:40 BP 130/76 05/05/24 10:40 Pulse Ox 98 05/05/24 10:40 Oxygen Delivery Method Room Air 05/05/24 10:40 BMI result Body Mass Index 31.3 Tobacco/Smoking Status: Tobacco use Status Tobacco use date assessed 05/05/24 05/05/24 10:45 Patient Tobacco Use Status Never used Tobacco 05/05/24 10:38 e-Cigarette/Vaping Use Never Used 05/05/24 10:38 PHQ-9: PHQ-9 Score PHQ-9: Total score 2 02/10/25 10:45 Depression Screening Interpretation: Negative Thrive Assessment: Date of Thrive Assessment Date Thrive assessed 05/05/24 05/05/24 10:45 Currently or been in a relationship where the following occur: No concerns reported Const General: cooperative, comfortable, no acute distress and alert Neck Neck: Yes no lymphadenopathy Thyroid: Thyroid normal Resp Effort & Inspection: normal respiratory effort Auscultation: clear to auscultation bilaterally Percussion: percussion normal Cardio Jugular venous distension: no JVD Palpation: normal PMI Rate: regular rate Rhythm: regular rhythm Heart sounds: S1 normal heart sound present and S2 normal heart sound present GI Inspection: Yes normal to inspection Palpation (GI): No hepatosplenomegaly present Skin General skin exam: no rashes or lesions noted Extrem General: Yes no clubbing, cyanosis or edema Coding Level of Care Code Est Pt Level 3 (13377) Diagnoses Panic disorder F41.0 Assessment & Plan Assessment & Plan (1) Panic disorder: Code(s): F41.0 - Panic disorder [episodic paroxysmal anxiety] Category: Medical Plan: stable; same rx Orders: Referrals Podiatry Referral M72.2 - Plantar fascial fibromatosis Medications: Refilled triamcinolone acetonide 0.5% apply topical 2 times a day; 15 grams 8RF
[2024-05-05 10:40] VITALS: BP 130/76; PULSE 107; TEMP 36.2; O2SAT 98; BMI 31.3
== END 2024-05-05 11:06 | disposition home or self-care (01) ==
PROVIDERS: PCP Internal Medicine; Visit Provider Internal Medicine
DX: F41.0 Panic disorder [episodic paroxysmal anxiety] (principal)

== ENCOUNTER → 2024-05-05 10:29 | Outpatient (BNVA) | payer OTHER, SELFPAY | PROVIDERS: PCP Internal Medicine; Visit Provider Internal Medicine | DX: F41.0 Panic disorder [episodic paroxysmal anxiety] (principal); M72.2 Plantar fascial fibromatosis | CPT/HCPCS: 99212 ==

== ENCOUNTER 2024-09-30 13:14 | Outpatient (REF) | payer OTHER, SELFPAY ==
[2024-09-30 15:27] LABS: Hematocrit 40.4 % (37.0-47.0); Hemoglobin 13.7 g/dl (12.0-16.0); Mean Corpuscular HGB Conc 33.9 g/dl (31.0-35.0); Mean Corpuscular Hemoglobin 29.0 pg (27.0-33.0); Mean Corpuscular Volume 85.4 fL (80.0-98.0); NRBC Abs Auto 0.000 X10*3/uL (0.0-0.012); NRBC Pct Auto 0.0 /100WBC (0.0-0.2); Platelet Count 408 X10*3/uL (160-400); Red Blood Count 4.73 X10*6/uL (4.20-5.50); White Blood Count 6.6 X10*3/uL (4.8-10.8)
[2024-09-30 15:53] LABS: Bacterial Vaginosis PCR NEGATIVE (Negative); Candida Group PCR NOT DETECTED (Not Detect); Candida glab krusei PCR NOT DETECTED (Not Detect); Trichomonas vaginalis PCR NOT DETECTED (Not Detect)
[2024-09-30 16:25] LABS: CT PCR NOT DETECTED (Not Detect.); NG PCR NOT DETECTED (Not Detect.)
[2024-10-01 03:20] LABS: Syphilis Screen Nonreactive (Nonreactive)
[2024-10-01 03:32] LABS: HBsAGNum1 0.34 S/CO (0.00-0.99); HIV Num 1 0.05 S/CO (0.00-0.99); Hepatitis B Surface Antigen Negative (Negative); ~HepC Num1 0.19 S/CO (0.00-0.79); ~Hepatitis C Antibody Nonreactive (Nonreactive)
[2024-10-01 05:03] LABS: Follicle Stimulating Hormone 3.0 mIU/mL
== END 2024-09-30 13:15 | disposition home or self-care (01) ==
LOC: HO.LAB 13:14
PROVIDERS: Visit Provider Obstetrics & Gynecology
DX: Z01.419 Encounter for gynecological examination (general) (routine) without abnormal findings (principal); N93.9 Abnormal uterine and vaginal bleeding, unspecified; Z20.2 Contact with and (suspected) exposure to infections with a predominantly sexual mode of transmission; Z11.3 Encounter for screening for infections with a predominantly sexual mode of transmission; Z11.59 Encounter for screening for other viral diseases; Z11.4 Encounter for screening for human immunodeficiency virus [HIV]; Z11.8 Encounter for screening for other infectious and parasitic diseases; Z12.31 Encounter for screening mammogram for malignant neoplasm of breast
CPT/HCPCS: 36415; 81515; 83001; 83002; 84443; 84702; 85027; 86780; 86803; 87340; 87389; 87491; 87591; 99212; 99396

== ENCOUNTER 2024-09-30 13:14 | Outpatient (AMB) | payer OTHER, SELFPAY ==
[2024-09-30 13:37] VITALS: BP 126/74; BMI 30.7
--- NOTE | 2024-09-30 13:37 | A.OFFVIS_ITS ---
Vital Signs 09/30/24 13:37 Height 5 ft 6 in Weight 190 lb BMI 30.7 BP 126/74 Intake Visit Reasons: DIRECTOR OF FIELD COORDINATION annual exam/do not reschedule Automatic Spreader Operator: Automatic Spreader Operator Present (Colleen) Accompanied by: Self / Same As Patient Allergies Peppers, Jalapeno Allergy (Severe, Verified 09/30/24 13:46) Anaphylaxis cefaclor (From Ceclor) Allergy (Intermediate, Verified 09/30/24 13:46) Rash HPI Comments Details: Presenting for annual exam. Complaining of heavier menstrual cycles . Requesting STD screen Last Pap/HPV was negative in 04/17 Last Mammogram was BI-RADS 1 in 05/18 Last screening colonoscopy was 12/17, the recommendation was to repeat in 10 years [facility] Medical History Panic disorder Surgical History H/O colonoscopy History of cholecystectomy Family History Mother No problems noted. Father No problems noted. Social History Household Members: Family Housing: Apartment Are you a primary acute care physician to a significant other at home: No Do you presently have visiting nurse or other home services: No Alcohol intake: current Alcohol intake frequency: does not drink Patient Tobacco Use Status: Never used Tobacco e-Cigarette/Vaping Use: Never Used Second Hand Smoke Exposure: No service: No Current occupational status: disabled Sexual orientation: Straight/Heterosexual Gender identity: Female Cognitive needs: No Hearing needs: No Vision needs: Yes (Glasses) Female Reproductive History Menstrual Age of Menarche: 14 Duration of menses: 3-5 days Date of last menstrual period: 09/09/24 control method: none Date of last pap smear: 03/31/22 Date of Mammogram: 05/20/22 Review of Systems Const All systems reviewed & are unremarkable except as noted in HPI and below Card Reports as per HPI Resp Reports as per HPI GI Reports as per HPI and Reports no additional complaints Reports as per HPI Physical Exam Vital Signs: Last Vital Signs BP 126/74 09/30/24 13:37 BMI result Body Mass Index 30.7 Const General: cooperative, healthy appearing and comfortable Chest Chest palpation & inspection: normal inspection of the chest and normal palpation of entire chest wall Breast/axilla inspection: normal inspection of the breasts and normal inspection of the axillae Breast/axilla palpation: normal palpation of the breasts, normal palpation of the axillae and no axillary lymphadenopathy Resp Effort & Inspection: normal respiratory effort Auscultation: clear to auscultation bilaterally Percussion: percussion normal Cardio Palpation: normal PMI Rate: regular rate Rhythm: regular rhythm Heart sounds: no murmurs and no rubs Peripheral pulses: Peripheral pulses 2+ throughout GI Inspection: Yes normal to inspection Palpation (GI): Soft to palpation, nontender, no guarding, not rigid and No hepatosplenomegaly present Percussion: Yes normal to percussion Auscultation: normal bowel sounds Rectal Exam - Female: deferred General: Yes bladder normal to palpation External Female Exam: No lesion Speculum Exam - Vagina: normal appearance of the vagina, normal palpation, normal vaginal discharge and not erythematous Speculum Exam - Cervix: normal appearance of the cervix and normal palpation Bimanual exam- vagina & uterus: normal bimanual exam, normal palpation, uterine size normal, bladder normal to palpation, consistency normal and normal palpation Bimanual Exam- Adnexa, other: normal adnexae, no masses and no tenderness Assessment & Plan Assessment & Plan (1) Well woman exam: Code(s): Z01.419 - Encounter for gynecological examination (general) (routine) without abnormal findings Category: Medical Plan: Cotesting done. Mammogram ordered. Counseled the patient about the recommended dietary allowance of 1000 mg of Calcium & 600 IU of vitamin D. The patient was instructed to perform monthly self-breast exams and to schedule an annual exam in a year; All questions answered and the patient verbalized understanding. Instructed the patient to schedule annual exam in a year (2) Abnormal uterine bleeding (AUB): Code(s): N93.9 - Abnormal uterine and vaginal bleeding, unspecified Category: Medical Plan: GC and chlamydia taken CBC, TSH, HCG, FSH/LH, and pelvic ultrasound ordered. Discussed with the patient the different causes of abnormal bleeding including thyroid disorders, uterine and ovarian pathology, endometrial hyperplasia, carcinoma and other potential causes. Discussed with the patient the work up including CBC (to r/o anemia), TSH, FSH/LH, pelvic Ultrasound, endometrial biopsy to r/o endometrial pathology. All questions answered and the patient verbalized understanding. Instructed the patient to schedule an appointment for an endometrial biopsy in 2 weeks. (3) Screen for STD (sexually transmitted disease): Code(s): Z11.3 - Encounter for screening for infections with a predominantly sexual mode of transmission Category: Medical Plan: STD screening tests done includes: BV panel for trichomonas, GC/CT will send patient for serology std screening for HIV, RPR, Hep b s Ag, HepC Ab. Instructions given the patient to schedule a follow-up appointment for repeat serology screen in 6 months for possible false negatives. Orders: Orders Complete Blood Count no Diff Today N93.9 - Abnormal uterine and vaginal bleeding, unspecified Follicle Stimulating Hormone Today N93.9 - Abnormal uterine and vaginal bleeding, unspecified US pelvic and transvaginal Today N93.9 - Abnormal uterine and vaginal bleeding, unspecified Syphilis Screen Today Z20.2 - Contact with and (suspected) exposure to infections with a predominantly sexual mode of transmission MM tomosynthesis screening BI Today Z12.31 - Encounter for screening mammogram for malignant neoplasm of breast TSH reflex Free T4 Today N93.9 - Abnormal uterine and vaginal bleeding, unspecified HCG Quantitative Today N93.9 - Abnormal uterine and vaginal bleeding, unspecified Lutenizing Hormone Today N93.9 - Abnormal uterine and vaginal bleeding, unspecified Hepatitis B Surface Antigen Today Z20.2 - Contact with and (suspected) exposure to infections with a predominantly sexual mode of transmission Hepatitis C Antibody Today Z20.2 - Contact with and (suspected) exposure to infections with a predominantly sexual mode of transmission HIV Ab/Ag Today Z20.2 - Contact with and (suspected) exposure to infections with a predominantly sexual mode of transmission Coding Level of Care Code Est Pt Level 3 (81899) Est Pt Prev Care 40-64y(90098) Diagnoses Well woman exam Z01.419 Abnormal uterine bleeding (AUB) N93.9 Screen for STD (sexually transmitted disease) Z11.3
== END 2024-09-30 14:11 | disposition home or self-care (01) ==
LOC: HO.HWS 13:14
PROVIDERS: Visit Provider Obstetrics & Gynecology
DX: Z01.419 Encounter for gynecological examination (general) (routine) without abnormal findings (principal); N93.9 Abnormal uterine and vaginal bleeding, unspecified
CPT/HCPCS: 99213; 99396; 99459

== ENCOUNTER 2024-10-14 09:18 | Outpatient (AMB) | payer OTHER, SELFPAY ==
--- NOTE | 2024-10-14 09:19 | MHC.OFFVIS ---
Vital Signs 10/14/24 10:49 Height 5 ft 6 in Weight 190 lb BMI 30.7 Intake Visit Reasons: EMB Horticultural Manager Required: No Information Interpreted: non-clinical & clinical Ticket Seller: Ticket Seller Present (Lindsay QUINN) Accompanied by: Self / Same As Patient Allergies Peppers, Jalapeno Allergy (Severe, Verified 09/30/24 13:46) Anaphylaxis cefaclor (From Ceclor) Allergy (Intermediate, Verified 09/30/24 13:46) Rash HPI Comments Details: Presenting for EMB [facility] Medical History Panic disorder Surgical History H/O colonoscopy History of cholecystectomy Family History Mother No problems noted. Father No problems noted. Social History Household Members: Family Housing: Apartment Are you a primary healthcare social worker to a significant other at home: No Do you presently have visiting nurse or other home services: No Alcohol intake: current Alcohol intake frequency: does not drink Patient Tobacco Use Status: Never used Tobacco e-Cigarette/Vaping Use: Never Used Second Hand Smoke Exposure: No service: No Current occupational status: disabled Sexual orientation: Straight/Heterosexual Gender identity: Female Cognitive needs: No Hearing needs: No Vision needs: Yes (Glasses) Female Reproductive History Menstrual Age of Menarche: 14 Physical Exam Vital Signs: BMI result Body Mass Index 30.7 Office Procedures Endometrial Biopsy Details: The patient was counseled regarding the indication and benefits of endometrial sampling to rule out endometrial pathology including not limited to endometrial hyperplasia or endometrial cancer and others; The alternatives (Either do nothing vs. hysteroscopy D&C) & the risks were discussed with the patient including but not limited: pain, uterine perforation, bleeding, infection, possible injury to bladder, bowel, ureter, possible need for blood transfusion with all its possible risks. The patient verbalized understanding all questions answered and signed consent. Urine test done in the office was negative The patient was placed into the dorsal lithotomy position; a speculum was inserted in the vagina. Using aseptic technique for the procedure, the cervix was cleansed with Betadine. The anterior lip of the cervix was grasped with a single tooth tenaculum. The uterus was sounded to 7 cm with a 4 mm Pipelle was used. Tissues samples were obtained and placed in formalin, in a patient labeled container and sent to the pathology department. At the end of the procedure, there was minimal bleeding noted The patient tolerated the procedure well and was discharged in good condition with the following instructions: Nothing in the vagina until the bleeding stops. No sex until the bleeding stops, to call if any of the following occurs: fever (>100.4), flu-like symptoms, abdominal pain, heavy bleeding, four smelling vaginal discharge. The patient was instructed to schedule a Follow up appointment in 2 weeks to discuss pathology results of the biopsy and treatment options. This note was generated with a voice recognition program. Some errors may have been overlooked during the review of this note. Sometimes these errors may affect the content or meaning of a given sentence. [id number] Biopsy Assessment & Plan Assessment & Plan (1) Abnormal uterine bleeding (AUB): Code(s): N93.9 - Abnormal uterine and vaginal bleeding, unspecified Category: Medical Plan: EMB done, see procedure note Orders: Orders AMB Endometrial Biopsy Today N93.9 - Abnormal uterine and vaginal bleeding, unspecified Surgical Today N93.9 - Abnormal uterine and vaginal bleeding, unspecified Coding Level of Care Code Procedure Only Diagnoses Abnormal uterine bleeding (AUB) N93.9 CPT Codes Endometrial Biopsy - CPT: 04115-[id number] Biopsy ([id number])
[2024-10-14 10:49] VITALS: BMI 30.7
== END 2024-10-14 10:59 | disposition home or self-care (01) ==
PROVIDERS: Visit Provider Obstetrics & Gynecology
DX: N93.9 Abnormal uterine and vaginal bleeding, unspecified (principal); Z32.02 Encounter for pregnancy test, result negative
CPT/HCPCS: 58100

== ENCOUNTER 2024-10-14 09:18 | Outpatient (REF) | payer OTHER, SELFPAY | END 2024-10-14 09:19 | disposition home or self-care (01) | LOC: HO.LNP 09:18 | PROVIDERS: Visit Provider Obstetrics & Gynecology | DX: Z32.02 Encounter for pregnancy test, result negative (principal); N93.9 Abnormal uterine and vaginal bleeding, unspecified | CPT/HCPCS: 58100; 81025; 88305 ==

== ENCOUNTER 2024-11-04 12:47 | Outpatient (REF) | payer OTHER, SELFPAY ==
--- NOTE | ~2024-11-04 | US_ITS ---
EXAMINATION: US PELVIS CLINICAL INFORMATION: Abnormal uterine/vaginal bleeding. LMP: 5 days ago to the present. COMPARISON: None available. TECHNIQUE: Ultrasound of the pelvis is performed using both transabdominal and transvaginal transducers along with Doppler. Transvaginal imaging is performed due to inadequate visualization transabdominally. FINDINGS: Uterus: The uterus is anteversion flexion and measures 9 x 6 x 6 cm. Volume: 140 cc. The double wall endometrial thickness is 4 mm. There is a 3.7 cm heterogeneous mixed echotexture lesion within the fundus of the uterus there is a focal, 9 mm anechoic lesion in the fundus of the uterus. Adnexa: The right ovary is not identified.. There is color Doppler flow to the left adnexa. There is no free fluid in the cul-de-sac. Left ovary measures 5 x 2 x 2 cm. Volume: 10 cc. US/US pelvic and transvaginal IMPRESSION: 3.7 cm uterine fibroid in the fundus possibly submucosal with a 0.9 cm cystic abnormality in the fundus. Right ovary is not identified. Left ovary appears normal. Electronically signed by: Wilber Betancur MD 11/04/2024 01:26 PM EDT
== END 2024-11-04 12:48 | disposition home or self-care (01) ==
LOC: HO.US 12:47
PROVIDERS: Visit Provider Obstetrics & Gynecology
DX: N93.9 Abnormal uterine and vaginal bleeding, unspecified (principal); F41.0 Panic disorder [episodic paroxysmal anxiety]; F41.9 Anxiety disorder, unspecified; R42 Dizziness and giddiness; C85.90 Non-Hodgkin lymphoma, unspecified, unspecified site; D22.9 Melanocytic nevi, unspecified
CPT/HCPCS: 76830; 76856; 96127; 99212

== ENCOUNTER → 2024-11-04 12:49 | Outpatient (BNV) | payer OTHER, SELFPAY | PROVIDERS: Visit Provider Radiology Diagnostic Radiology | DX: D25.0 Submucous leiomyoma of uterus (principal) | CPT/HCPCS: 76830; 76856 ==

== ENCOUNTER 2024-11-04 14:30 | Outpatient (AMB) | payer OTHER, SELFPAY ==
--- NOTE | 2024-11-04 14:32 | MHC.PC.OV ---
Vital Signs 11/04/24 14:34 Height 5 ft 6 in Weight 196 lb 2 oz BMI 31.7 BP 128/59 L Blood Pressure Location Lt brachial Position Sitting Pulse 110 H Pulse Source Pulse Oximeter Pulse Oximetry (%) 97 Oxygen Delivery Method Room Air Intake Visit Reasons: Transfer from [address] Speeder Worker Required: No Accompanied by: Self / Same As Patient Allergies Peppers, Jalapeno Allergy (Severe, Verified 11/04/24 14:51) Anaphylaxis cefaclor (From Ceclor) Allergy (Intermediate, Verified 11/04/24 14:51) Rash Medication List - Last Reconciled 11/04/24 by Lashay Webb PA-C fluoxetine 40 mg (2 x 20 mg) PO DAILY triamcinolone acetonide 0.5% apply topical 2 times a day; Tobacco use date assessed: 11/04/24 Dental Screening Dental Screen Date: 11/04/24 Did you have a dental visit in the last 12 months?: Yes Did you have a dental problem in the last 6 months where you did not have access to dental care?: No Was dental information given to patient?: Patient has dentist HPI Transfer from [address] HPI Details 49-year-old female with past medical history of panic disorder, OCD, anxiety, abnormal uterine bleeding last seen 04/[address] Villalobos coming in for transfer of care. In review of the notes, patient was seen by Gynecology 09/2024 for abnormal uterine bleeding endometrial biopsy was taken and plan for ultrasound. Presenting with dizziness which began after dental procedures involving lidocaine, with symptoms including vertigo and a sensation of being high. The dizziness was most pronounced when lying down and transitioning to sitting up, and it resolved after taking a break from dental visits. The patient has a history of anxiety disorder and obsessive-compulsive disorder, for which she takes Prozac and sees a therapist twice a month. She reports perimenopausal symptoms, including brain fog, and has discussed hormone replacement therapy with her comptometrist. The patient has a history of non-Hodgkin's lymphoma, diagnosed at age 16, and has been in remission since completing chemotherapy and radiation therapy. She experiences foot pain suggestive of plantar fasciitis and has been referred to podiatry. The patient has concerns about scalp psoriasis and has been referred to dermatology. colonoscopy: 11/2023 Mammo: ordered pap smear: UTD through public works supervisor [facility] Medical History (Updated 11/04/24 @ 15:07 by Lashay Webb PA-C) Non-Hodgkin lymphoma Panic disorder Surgical History H/O colonoscopy History of cholecystectomy Family History Mother No problems noted. Father No problems noted. Social History Household Members: Family Housing: Apartment Are you a primary out of school hours care worker to a significant other at home: No Do you presently have visiting nurse or other home services: No Alcohol intake: current Alcohol intake frequency: does not drink Patient Tobacco Use Status: Never used Tobacco e-Cigarette/Vaping Use: Never Used Second Hand Smoke Exposure: No service: No Current occupational status: disabled Sexual orientation: Straight/Heterosexual Gender identity: Female Cognitive needs: No Hearing needs: No Vision needs: Yes (Glasses) Female Reproductive History Menstrual Age of Menarche: 14 Questionnaire PHQ-9 Over the last 2 weeks, how often have you been bothered by any of the following problems? 1. Little interest or pleasure in doing things: several days 2. Feeling down, depressed, or hopeless: several days 3. Trouble falling or staying asleep, or sleeping too much: several days 4. Feeling tired or having little energy: more than half the days 5. Poor appetite or overeating: not at all 6. Feeling bad about yourself - or that you are a failure or have let yourself or your family down: not at all 7. Trouble concentrating on things, such as reading the newspaper or watching television: not at all 8. Moving or speaking so slowly that other people could have noticed. Or the opposite - being so fidgety or restless that you have been moving around a lot more than usual: not at all 9. Thoughts that you would be better off or of hurting yourself in some way: not at all Total score: 5 19134 - PHQ-9 Billing: Yes Source: Developed by Drs. Gerardo Prince, An Coffey, Ron Sandoval and colleagues, with an educational wong from [employer] Thrive Questionnaire Date Thrive assessed: 11/04/24 I am a: Patient What is your living situation today?: I have a steady place to live Within the past 12 months, did the food you bought not last and you didn't have the money to get more?: Never true Within the past 12 months, did you worry whether your food would run out before you got money to buy more?: Never true Do you have trouble paying for medicines?: No Do you have trouble getting transportation to medical appointments?: No Do you have trouble paying your heating and electricity bill?: No Do you have trouble taking care of your child, family member or friend?: No Do you have trouble with day-to-day activities such as bathing, preparing meals, shopping, managing finances, etc.?: Yes Are you currently unemployed and looking for a job?: No Are you interested in more education?: I choose not to answer this question Please select the resources that you would like help with: None Currently or been in a relationship where the following occur: Made to feel afraid THRIVE Score: 1 AUDIT C Alcohol Use Questionnaire (AUDIT-C) 1. How often do you have a drink containing alcohol?: Never Total Score: 0 JODIE-7 AMB Questionnaire JODIE-7 Date JODIE - 7 assessed: 11/04/24 Feeling nervous, anxious, or on edge: 1 = Several days Not being able to stop or control worryin = Not at all Worrying too much about different things: 0 = Not at all Trouble relaxin = Not at all Being so restless that it is hard to sit still: 0 = Not at all Becoming easily annoyed or irritable: 0 = Not at all Feeling afraid as if something awful might happen: 0 = Not at all Total JODIE-7 score (0-4 normal; 5-9 mild; 10-14 moderate; 15-21 severe): 1 Source: Developed by Drs. Gerardo Prince, An Coffey, Ron Sandoval and colleagues, with an educational wong from [employer] JODIE-7 Assessment Billing JODIE-7 Assessment Tool: JODIE-7 Assessment 66565 Review of Systems Const Denies body aches, Denies chills, Denies fever(s), Denies headache(s) and Denies poor appetite Eyes Reports no additional complaints ENT Reports as per HPI, Denies dysphagia, Denies headache(s) and Denies odynophagia Card Denies chest pain, Denies syncope, Denies edema, Denies irregular heart rhythm, Denies lightheadedness and Denies dyspnea Resp Denies cough and Denies dyspnea GI Denies abdominal pain, Denies constipation, Denies dysphagia, Denies diarrhea, Denies nausea, Denies odynophagia and Denies vomiting Reports no additional complaints Musc Reports no additional complaints and Denies abnormal gait Skin/Breast Reports system reviewed and no additional complaints, except as documented Neuro Denies abnormal gait, Denies syncope and Denies headache(s) Psych Reports no additional complaints Physical exam (Primary Care) Vital Signs: Last Vital Signs Pulse 110 H 11/04/24 14:34 BP 128/59 L 11/04/24 14:34 Pulse Ox 97 11/04/24 14:34 Oxygen Delivery Method Room Air 11/04/24 14:34 BMI result Body Mass Index 31.7 Tobacco/Smoking Status: Tobacco use Status Tobacco use date assessed 11/04/24 11/04/24 14:38 Patient Tobacco Use Status Never used Tobacco 11/04/24 14:38 e-Cigarette/Vaping Use Never Used 11/04/24 14:38 PHQ-9: PHQ-9 Score PHQ-9: Total score 5 11/04/24 17:19 Thrive Assessment: Date of Thrive Assessment Date Thrive assessed 11/04/24 11/04/24 14:38 Currently or been in a relationship where the following occur: Made to feel afraid Const General: cooperative, healthy appearing, comfortable and no acute distress Orientation/consciousness: patient oriented x3 [facility] Head: Yes normocephalic Ears: hearing grossly normal bilaterally General nose exam: Normal external nose present Eyes General: appearance normal, both eyes and all related structures Conjunctivae: conjunctivae normal Neck Neck: Yes full ROM and Yes no lymphadenopathy Resp Effort & Inspection: normal respiratory effort Auscultation: clear to auscultation bilaterally, no crackles, no rales, no rhonchi and no wheezes Cardio Rate: regular rate Rhythm: regular rhythm Skin General skin exam: no rashes or lesions noted Neuro General: patient oriented x3 Gait exam (Neuro): Normal gait present Extrem General: Yes normal to inspection, Yes full ROM and No edema Psych Affect: normal affect Attitude: cooperative Insight: Good insight present (Psych) Judgement: Good judgement present (Psych) Coding Level of Care Code Est Pt Level 4 (09036) Diagnoses Panic disorder F41.0 Anxiety F41.9 Abnormal uterine bleeding (AUB) N93.9 Dizziness R42 Non-Hodgkin lymphoma C85.90 Atypical nevi D22.9 Additional Codes JODIE-7 Assessment Billing - JODIE-7 Assessment Tool: JODIE-7 Assessment 28501 ([id number]) PHQ-9 - 73175 - PHQ-9 Billing: Yes ([id number]) Assessment & Plan Assessment & Plan (1) Panic disorder: Code(s): F41.0 - Panic disorder [episodic paroxysmal anxiety] Category: Medical Plan: Patient is currently on Prozac and feels good on this medication this time. She is declining additional medication or counseling services. She is currently following with counselor biweekly (2) Anxiety: Code(s): F41.9 - Anxiety disorder, unspecified Category: Medical Plan: See above (3) Abnormal uterine bleeding (AUB): Code(s): N93.9 - Abnormal uterine and vaginal bleeding, unspecified Category: Medical Plan: Currently undergoing a workup with her comptometrist for abnormal uterine bleeding. She had an endometrial biopsy in the scheduled to have ultrasound coming up. Continue to follow up with gynecology (4) Dizziness: Code(s): R42 - Dizziness and giddiness Category: Medical Plan: Patient had several episodes of dizziness over a 3 week span which involved multiple dental visits starting that time. We discussed this is likely not a side effect of lidocaine however if she is concerned about an allergy or adverse reaction to lidocaine I did offer a referral to automotive parts coordinator which was declined. I did advise her to speak with her dentist regarding alternatives to lidocaine. She has not had any recurring symptoms and advised patient to keep a log of her journal and reach out to the office should she develop symptoms again. (5) Non-Hodgkin lymphoma: Comment: hx at 16 y/o Code(s): C85.90 - Non-Hodgkin lymphoma, unspecified, unspecified site Category: Medical Plan: She is requesting referral to Hematology/Oncology which was placed today. No active symptoms and currently on remission. (6) Atypical nevi: Code(s): D22.9 - Melanocytic nevi, unspecified Category: Medical Plan: Referral was placed to dermatology at patient request Plan The patient will be referred to an automotive parts coordinator to evaluate for potential lidocaine sensitivity, given the dizziness experienced during dental procedures. The patient will continue with Prozac for anxiety and OCD management, and she is encouraged to maintain regular therapy sessions. A referral to dermatology has been provided to assess for scalp psoriasis. The patient is advised to follow dietary modifications and increase physical activity to manage hyperlipidemia, with a plan to retest cholesterol levels after implementing these changes. A mammogram has been scheduled as part of routine preventative care. This note was constructed using voice recognition software. While every effort has been made to ensure accuracy and customs brokerage manager, still areas may have been included sometimes these areas may affect the content or meeting of the given symptoms. Total time spent caring for the patient today was 30 minutes. This includes time spent before the visit reviewing the chart, time spent during the visit, and time spent after the visit and documentation. Patient was informed and verbally consented to the use of an ambient scribe for clinic note documentation during this visit. Orders: Orders Lipid Panel 11/04/24 E78.00 - Pure hypercholesterolemia, unspecified Hemoglobin A1c 11/04/24 Z13.1 - Encounter for screening for diabetes mellitus Referrals Hematology & Oncology Referral C85.90 - Non-Hodgkin lymphoma, unspecified, unspecified site Dermatology Referral D22.9 - Melanocytic nevi, unspecified Medications: Refilled fluoxetine 40 mg (2 x 20 mg) PO DAILY 180 caps 8RF F41.0 - Panic disorder [episodic paroxysmal anxiety]
[2024-11-04 14:34] VITALS: BP 128/59; PULSE 110; O2SAT 97; BMI 31.7
== END 2024-11-04 15:14 | disposition home or self-care (01) ==
LOC: HO.HMCH 14:31
DX: R42 Dizziness and giddiness (principal); C85.90 Non-Hodgkin lymphoma, unspecified, unspecified site; F41.0 Panic disorder [episodic paroxysmal anxiety]; F41.9 Anxiety disorder, unspecified; N93.9 Abnormal uterine and vaginal bleeding, unspecified; D22.9 Melanocytic nevi, unspecified

== ENCOUNTER 2024-11-10 13:54 | Outpatient (REF) | payer OTHER, SELFPAY ==
--- NOTE | ~2024-11-10 | MM_ITS ---
EXAMINATION: MM SCREENING DIGITAL BREAST TOMOSYNTHESIS, BILATERAL CLINICAL INFORMATION: Screening. Asymptomatic. History of Hodgkin's lymphoma. COMPARISON: Mammography: Comparison is made with available priors TECHNIQUE: Digital breast mammography with tomosynthesis is performed in both the craniocaudal and mediolateral oblique views along with computer-aided detection (CAD). FINDINGS: The breasts are extremely dense, which lowers the sensitivity of mammography (ACR BI-RADS breast composition Category d). Left: Focal asymmetry lower inner breast middle depth. No suspicious calcifications or other abnormal findings. Right: Asymmetry medial breast middle depth on CC view with questioned distortion. No suspicious calcifications or other abnormal findings. MM/MM tomosynthesis screening BI IMPRESSION: Additional imaging is recommended ASSESSMENT: BI-RADS BI-RADS 0 - Incomplete: Needs additional Imaging. RECOMMENDATION: 1. Additional views of the bilateral breasts. 2. Targeted ultrasound if warranted after review of the additional views. 3. Radiology department staff will contact the patient for additional imaging. Patient has a history of Hodgkin's lymphoma. Recommend yearly breast MRI screening surveillance if the patient has had mantal radiation. Breast MRI would need to be ordered by the patient's providing clinician. Additional Imaging required This examination should not preclude the clinical evaluation of a suspicious palpable abnormality. This patient's information was entered into a reminder system with a target due date for their next mammogram. Electronically signed by: Peggy Moore DO 11/12/2024 09:56 AM [email or web address]
== END 2024-11-10 13:55 | disposition home or self-care (01) ==
LOC: HO.MAMMO 13:54
PROVIDERS: Visit Provider Obstetrics & Gynecology
DX: Z12.31 Encounter for screening mammogram for malignant neoplasm of breast (principal)
CPT/HCPCS: 77063; 77067

== ENCOUNTER → 2024-11-10 14:30 | Outpatient (BNV) | payer OTHER, SELFPAY | PROVIDERS: Visit Provider Internal Medicine | DX: Z12.31 Encounter for screening mammogram for malignant neoplasm of breast (principal) | CPT/HCPCS: 77063; 77067 ==

== ENCOUNTER 2024-11-18 09:21 | Outpatient (AMB) | payer OTHER, SELFPAY ==
--- NOTE | 2024-11-18 09:23 | A.OFFVIS_ITS ---
Intake Visit Reasons: Ultrasound follow up Housekeeping/Laundry: Housekeeping/Laundry Present Allergies Peppers, Jalapeno Allergy (Severe, Verified 11/18/24 09:24) Anaphylaxis cefaclor (From Ceclor) Allergy (Intermediate, Verified 11/18/24 09:24) Rash Is last menstrual period known: Yes Last menstrual period: 01/22/20 Post menopausal: No Patient : No Do you need a note to return to daycare/school/sports/work: Yes (for surgery on sunday) HPI Comments Details: The patient is presenting for follow-up to discuss the results of her abnormal uterine bleeding workup and options of treatment. The following workup was done.: H&H= 13.7/40.4 TSH, hCG, GC and chlamydia were negative. FSH/LH 3/6.5 Endometrial biopsy pathology showed the following: Endometrium, biopsy: - Mildly disordered proliferative endometrium; no atypia or hyperplasia identified. - Small fragment of endocervical tissue within normal limits Co testing was done in 04/17 was negative. Mammogram was BI-RADS 0, no additional if you have mammogram scheduled yet Pelvic ultrasound showed the following: Uterus: The uterus is anteversion flexion and measures 9 x 6 x 6 cm. Volume: 140 cc. The double wall endometrial thickness is 4 mm. There is a 3.7 cm heterogeneous mixed echotexture lesion within the fundus of the uterus there is a focal, 9 mm anechoic lesion in the fundus of the uterus. Adnexa: The right ovary is not identified.. There is color Doppler flow to the left adnexa. There is no free fluid in the cul-de-sac. Left ovary measures 5 x 2 x 2 cm. Volume: 10 cc. US/US pelvic and transvaginal IMPRESSION: 3.7 cm uterine fibroid in the fundus possibly submucosal with a 0.9 cm cystic abnormality in the fundus. Right ovary is not identified. Left ovary appears normal. [facility] Medical History (Updated 11/18/24 @ 09:45 by Bobby Paniagua MD) Non-Hodgkin lymphoma Panic disorder Surgical History H/O colonoscopy History of cholecystectomy Family History Mother No problems noted. Father No problems noted. Social History Household Members: Family Housing: Apartment Are you a primary respiratory care faculty to a significant other at home: No Do you presently have visiting nurse or other home services: No Alcohol intake: current Alcohol intake frequency: does not drink Patient Tobacco Use Status: Never used Tobacco e-Cigarette/Vaping Use: Never Used Second Hand Smoke Exposure: No service: No Current occupational status: disabled Sexual orientation: Straight/Heterosexual Gender identity: Female Cognitive needs: No Hearing needs: No Vision needs: Yes (Glasses) Female Reproductive History Menstrual Age of Menarche: 14 Date of last menstrual period: 01/22/20 Total pregnancies: 2 Full term: 2 Review of Systems Card Reports as per HPI and Reports no additional complaints Resp Reports as per HPI and Reports no additional complaints GI Reports as per HPI and Reports no additional complaints Reports as per HPI Physical Exam Const General: cooperative, healthy appearing and comfortable Resp Effort & Inspection: normal respiratory effort Auscultation: clear to auscultation bilaterally Percussion: percussion normal Cardio Palpation: normal PMI Rate: regular rate Rhythm: regular rhythm Heart sounds: no murmurs and no rubs Peripheral pulses: Peripheral pulses 2+ throughout GI Inspection: Yes normal to inspection Palpation (GI): Soft to palpation, nontender, no guarding, not rigid and No hepatosplenomegaly present Percussion: Yes normal to percussion Auscultation: normal bowel sounds Rectal Exam - Female: deferred Assessment & Plan Assessment & Plan (1) Abnormal uterine bleeding (AUB): Code(s): N93.9 - Abnormal uterine and vaginal bleeding, unspecified Category: Medical Plan: Discussed with the patient the results of the work up done and options of treatment including Lysteda, BCP's, Mirena IUD, endometrial ablation and hysterectomy. All pros, cons, risks and benefits if each option was discussed with the patient and the patient decided to think about it and get back to us. All questions answered the patient verbalized understanding. (2) Uterine myoma: Code(s): D25.9 - Leiomyoma of uterus, unspecified Category: Medical Plan: Discussed with the patient the findings on pelvic ultrasound & the risk of myosarcoma; in addition reviewed with the patient that malignancy and pre malignancy cannot be ruled out without hysterectomy for pathological evaluation ; furthermore, explained to the patient the limitation of pelvic ultrasound and endometrial biopsy in the setting. Discussed with the patient the options of treatment including expectant management versus hysterectomy; the pros and cons, risks benefits of each approach were discussed with the patient including the fact that in cases of myosarcoma, surgical treatment can lead to early diagnosis and positively affects the prognosis; after further discussion, the patient decided to proceed with expectant management. Will repeat pelvic ultrasound periodically. Instructions given to patient to call in case any of the following occurs: pressure symptoms, abnormal uterine bleeding, pelvic pain; and to schedule a six-months pelvic ultrasound (order placed) and a follow-up appointment . All questions answered, the patient verbalized understanding and agreed with the plan . (3) Abnormal ultrasound: Code(s): R93.89 - Abnormal findings on diagnostic imaging of other specified body structures Category: Medical Plan: Discussed with the patient the finding on ultrasound showing 0.9 cm anechoic cystic abnormality at the fundus, recommended hysteroscopy D&C possible polypectomy/myomectomy Discussed with the patient the procedure , all benefits and risks including but not limited to inability to complete the procedure , insufficient endometrial tissue for a complete evaluation of the endometrial cavity , bleeding, infection, possible need for blood transfusion with all its risk ( HIV,syphilis, Hepatitis, anaphylaxis shock, others..), injury to bladder, rectum, possible need for laparoscopy/laparotomy or hysterectomy. The patient verbalized understanding and signed the consent. Instructions given the patient to stay NPO after midnight the day prior to the procedure and to take only the specific medication (s) discussed the morning of the surgical procedure and to schedule a 2 week postoperative appointment Orders: Orders US pelvic and transvaginal 6 Months D25.9 - Leiomyoma of uterus, unspecified Coding Level of Care Code Est Pt Level 3 (88603) Diagnoses Abnormal uterine bleeding (AUB) N93.9 Uterine myoma D25.9 Abnormal ultrasound R93.89
--- NOTE | 2024-11-18 09:23 | MHC.OFFVIS ---
Intake Visit Reasons: Ultrasound follow up Accompanied by: Self / Same As Patient Allergies Peppers, Jalapeno Allergy (Severe, Verified 11/18/24 09:24) Anaphylaxis cefaclor (From Ceclor) Allergy (Intermediate, Verified 11/18/24 09:24) Rash [facility] Medical History (Updated 11/04/24 @ 15:07 by Lashay Webb PA-C) Non-Hodgkin lymphoma Panic disorder Surgical History H/O colonoscopy History of cholecystectomy Family History Mother No problems noted. Father No problems noted. Social History Household Members: Family Housing: Apartment Are you a primary certified social workers in health care to a significant other at home: No Do you presently have visiting nurse or other home services: No Alcohol intake: current Alcohol intake frequency: does not drink Patient Tobacco Use Status: Never used Tobacco e-Cigarette/Vaping Use: Never Used Second Hand Smoke Exposure: No service: No Current occupational status: disabled Sexual orientation: Straight/Heterosexual Gender identity: Female Cognitive needs: No Hearing needs: No Vision needs: Yes (Glasses) Female Reproductive History Menstrual Age of Menarche: 14 Coding
== END 2024-11-18 10:07 | disposition home or self-care (01) ==
LOC: HO.HWS 09:22
PROVIDERS: Visit Provider Obstetrics & Gynecology
DX: N93.9 Abnormal uterine and vaginal bleeding, unspecified (principal); D25.9 Leiomyoma of uterus, unspecified; R93.89 Abnormal findings on diagnostic imaging of other specified body structures
CPT/HCPCS: 99213

== ENCOUNTER → 2024-11-18 09:21 | Outpatient (BNVA) | payer OTHER, SELFPAY | PROVIDERS: Visit Provider Obstetrics & Gynecology | DX: R93.89 Abnormal findings on diagnostic imaging of other specified body structures (principal); N93.9 Abnormal uterine and vaginal bleeding, unspecified; D25.9 Leiomyoma of uterus, unspecified | CPT/HCPCS: 99212 ==

== ENCOUNTER 2024-12-12 09:31 | Day surgery (SDC) | payer OTHER, SELFPAY ==
[2024-12-10 11:04] VITALS: BMI 31.7
--- NOTE | 2024-12-10 11:30 | P.CONAN_ITS ---
Documented by User: Eli Beauchamp NP 12/10/24 11:30 HPI - Anesthesia Eval Consult details Narrative: 49 yr old female for D&C Hysteroscopy,possible myomectomy,possible polypectomy PMF Active Problems Active Problems: All Active Problems (Updated 11/18/24 @ 09:45 by Bobby Paniagua MD) Abnormal ultrasound (Acute) Uterine myoma (Acute) Atypical nevi (Acute) Screening for diabetes mellitus (Acute) Dizziness (Acute) Screen for STD (sexually transmitted disease) (Acute) Abnormal uterine bleeding (AUB) (Acute) Anxiety (Acute) Well woman exam (Acute) OCD (obsessive compulsive disorder) (Acute) Physical exam (Acute) Tongue lesion (Acute) Non-Hodgkin lymphoma (Acute) Panic disorder (Acute) Past Medical History Medical History Non-Hodgkin lymphoma Panic disorder Family History Family History Mother No problems noted. Father No problems noted. Family history of problems with anesthesia: No Surgical History Surgical History H/O colonoscopy (11/2023) History of cholecystectomy History of Problems with Anesthesia: No Social History Social History Household Members: Family Housing: Apartment Housing Other:: duplex Are you a primary cardiac care unit nurse to a significant other at home: No Do you presently have visiting nurse or other home services: No Alcohol intake: current Alcohol intake frequency: does not drink Patient Tobacco Use Status: Never used Tobacco e-Cigarette/Vaping Use: Never Used Second Hand Smoke Exposure: No Have you been hit, kicked, punched, or otherwise hurt by someone within the past year? If so, by whom?: No Are you DNR?: No Advance Directives: No Advance Directives Information Provided: Yes FDLMP: few weeks ago Poor oral hygiene: Yes service: No Current occupational status: disabled Sexual orientation: Straight/Heterosexual Gender identity: Female Cognitive needs: No Hearing needs: No Vision needs: Yes (Glasses) Meds Allergies Allergy/AdvReac Type Severity Reaction Status Date / Time Peppers, Jalapeno Allergy Severe Anaphylaxis Verified 12/12/24 10:20 cefaclor (From Ceclor) Allergy Intermediate Rash Verified 12/12/24 10:20 Exam Height,Weight and Vital Signs: Height 5 ft 6 in Weight 88.961 kg Assessment and Plan Final Anesthetic Review Family History of Problems with Anesthesia: No History of Problems with Anesthesia: No Documented by User: Jeanette Galloway MD 12/12/24 11:24 [facility] Past Medical History Medical History Non-Hodgkin lymphoma Panic disorder Family History Family History Mother No problems noted. Father No problems noted. Surgical History Surgical History H/O colonoscopy (11/2023) History of cholecystectomy Social History Social History Household Members: Family Housing: Apartment Housing Other:: duplex Are you a primary cardiac care unit nurse to a significant other at home: No Do you presently have visiting nurse or other home services: No Alcohol intake: current Alcohol intake frequency: does not drink Patient Tobacco Use Status: Never used Tobacco e-Cigarette/Vaping Use: Never Used Second Hand Smoke Exposure: No Have you been hit, kicked, punched, or otherwise hurt by someone within the past year? If so, by whom?: No Are you DNR?: No Advance Directives: No Advance Directives Information Provided: Yes FDLMP: few weeks ago Poor oral hygiene: Yes service: No Current occupational status: disabled Sexual orientation: Straight/Heterosexual Gender identity: Female Cognitive needs: No Hearing needs: No Vision needs: Yes (Glasses) Meds Allergies Allergy/AdvReac Type Severity Reaction Status Date / Time Peppers, Jalapeno Allergy Severe Anaphylaxis Verified 12/12/24 10:20 cefaclor (From Ceclor) Allergy Intermediate Rash Verified 09/19/25 10:20 Exam Airway Mallampati Class: II TM Dist: >3cm Neck ROM: Full Loose/Missing/Broken Teeth: No Heart: RRR Lungs: CTA Assessment and Plan Assessment Anesthesia Assessment: Anesthesia Plan Discussed Final Anesthetic Review NPO: Yes ASA Class: II Final Preanesthetic Review: Meds/Allgs Chart Reviewed, Consent Obtained/Reviewed and Anes Risks/Benef Reviewed Patient Risk: Low Procedure Risk: Low Anesthetic Plan Anesthetic Plan: GA Disposition: Standard PACU
[2024-12-12 10:03] VITALS: BMI 32.0
[2024-12-12] MEDS: Lactated Ringers 1,000 ML 100 ML IVCONT (10:05)
[2024-12-12 10:26] LABS: UPreg QC Valid YES
--- NOTE | 2024-12-12 10:26 | MHC.SHP ---
Pre-Procedural Eval Section A - 24 Hr Update-Section A only Date of Service: 12/12/24 Section B - Complete if H&P > 30 days Chief Complaint: Abnormal uterine and vaginal bleeding, unspecified Allergies: Allergies Allergy/AdvReac Type Severity Reaction Status Date / Time Slava Bashir Allergy Severe Anaphylaxis Verified 12/12/24 10:20 cefaclor (From Ceclor) Allergy Intermediate Rash Verified 12/12/24 10:20 Plan I have reviewed the history and physical and performed a pertinent physical examination on my patient. No changes have occurred unless specified. Time Spent With Patient Time: Total time managing care of this patient today ____ minutes.
[2024-12-12 10:27] VITALS: BP 109/78; PULSE 81; RESP 18; TEMP 36.6; O2SAT 96
[2024-12-12 12:15] VITALS: BP 131/79; PULSE 75; RESP 16; TEMP 36.1; O2SAT 99
--- NOTE | 2024-12-12 12:17 | P.BOP_ITS ---
Brief Operative Note Date of Service: 12/12/24 Pre-op diagnosis: Abnormal uterine bleeding Post-op diagnosis: same (Normal endometrial cavity) Procedure: Hysteroscopy D&C Surgeon: Bobby Paniagua MD Anesthesia: GLMA Was an Mastic Floor Layer used for this Procedure?: No Estimated blood loss (mL): 0 Pathology: other (Endometrial Scrapping. ) Condition: stable Disposition: PACU
--- NOTE | 2024-12-12 12:18 | W.PM.OPN ---
Operative Note Operative Note Date of Service: 12/12/24 Narrative: Preop Diagnosis: Abnormal uterine bleeding Operation: Diagnostic Hysteroscopy, Dilataion & Curettage Post Op Diagnosis: Normal endometrial and endocervical cavity, no evidence of pathology QBL: Minimal Anesthesia: GLMA Surgeon: Bobby Paniagua MD [employer] Director: None Complication: None Pathology: Endometrial Scrapings Procedure: The patient was put in the dorsal lithotomy position, scrubbed, and draped in the usual manner. A sterile speculum was inserted in the patient's vagina. The anterior lip of the cervix was grasped with a single tooth tenaculum. The cervix was dilated up to 5 mm, then the scope was inserted in the patient's uterus. Inspection revealed normal endocervical & endometrial cavity with no evidence of pathology. The scope was taken out of the uterine cavity , then sharp curetting was carried on with no complications. At the end of the procedure, all instruments were taken out of the patient uterine and vaginal cavity. The single tooth tenaculum was removed and homeostasis was assured using pressure. The patient tolerated the procedure well and was transferred to the PACU in a stable condition.
[2024-12-12 12:20] VITALS: BP 124/74; PULSE 76; RESP 14; O2SAT 95
[2024-12-12 12:25] VITALS: BP 115/69; PULSE 68; RESP 13; O2SAT 95
[2024-12-12 12:30] VITALS: BP 115/68; PULSE 66; RESP 15; O2SAT 95
[2024-12-12 12:45] VITALS: PULSE 75; RESP 15; TEMP 36.2; O2SAT 97
== END 2024-12-12 14:50 | disposition home or self-care (01) ==
PROVIDERS: Nurse Practitioner; Visit Provider Obstetrics & Gynecology
PROC: 0UDB8ZZ Extraction of Endometrium, Via Natural or Artificial Opening Endoscopic (ICD-10-PCS; CPT 58558; principal; 2024-12-12 12:10)
DX: N93.9 Abnormal uterine and vaginal bleeding, unspecified (principal); D25.9 Leiomyoma of uterus, unspecified; R93.89 Abnormal findings on diagnostic imaging of other specified body structures; N85.8 Other specified noninflammatory disorders of uterus; C85.90 Non-Hodgkin lymphoma, unspecified, unspecified site; Z88.8 Allergy status to other drugs, medicaments and biological substances; Z91.018 Allergy to other foods; F41.0 Panic disorder [episodic paroxysmal anxiety]; Z90.49 Acquired absence of other specified parts of digestive tract
CPT/HCPCS: 58558; 81025; 88305

== ENCOUNTER → 2024-12-12 09:31 | Outpatient (BNV) | payer OTHER, SELFPAY | PROVIDERS: Visit Provider Obstetrics & Gynecology | DX: N93.9 Abnormal uterine and vaginal bleeding, unspecified (principal) | CPT/HCPCS: 58558 ==

== ENCOUNTER 2024-12-24 | Outpatient (REF) | payer OTHER, SELFPAY | END 2024-12-24 00:01 | disposition home or self-care (01) | LOC: CF | PROVIDERS: Visit Provider Obstetrics & Gynecology | DX: Z98.890 Other specified postprocedural states (principal); N93.9 Abnormal uterine and vaginal bleeding, unspecified; D25.9 Leiomyoma of uterus, unspecified | CPT/HCPCS: 99212 ==

== ENCOUNTER 2024-12-24 11:03 | Outpatient (AMB) | payer OTHER, SELFPAY ==
--- NOTE | 2024-12-24 11:11 | A.OFFVIS_ITS ---
Intake Visit Reasons: post op Commercial Or Institutional Cleaner Required: No Information Interpreted: non-clinical & clinical Accompanied by: Self / Same As Patient Allergies Peppers, Jalapeno Allergy (Severe, Verified 12/24/24 11:13) Anaphylaxis cefaclor (From Ceclor) Allergy (Intermediate, Verified 12/24/24 11:13) Rash HPI Comments Details: The patient is presenting post hysteroscopy D&C no complaints minimal vaginal bleeding no feverishness chills or abdominal pain. The pathology showed the following: Endometrium, curettage: Mixed pattern early secretory and disordered proliferative endometrium with patchy metaplastic changes and focal breakdown; no atypia or hyperplasia identified. The following workup was done.: H&H= TSH, hCG, GC and chlamydia were negative. 04/17 Co testing was done was negative. 11/17 Mammogram was BI-RADS 0, additional views scheduled on 01/20 Pelvic ultrasound showed the following: Uterus: The uterus is anteversion flexion and measures 9 x 6 x 6 cm. Volume: 140 cc. The double wall endometrial thickness is 4 mm. There is a 3.7 cm heterogeneous mixed echotexture lesion within the fundus of the uterus there is a focal, 9 mm anechoic lesion in the fundus of the uterus. Adnexa: The right ovary is not identified.. There is color Doppler flow to the left adnexa. There is no free fluid in the cul-de-sac. Left ovary measures 5 x 2 x 2 cm. Volume: 10 cc. US/US pelvic and transvaginal IMPRESSION: 3.7 cm uterine fibroid in the fundus possibly submucosal with a 0.9 cm cystic abnormality in the fundus. Right ovary is not identified. Left ovary appears normal. [facility] Medical History Non-Hodgkin lymphoma Panic disorder Surgical History H/O colonoscopy (11/2023) History of cholecystectomy Family History Mother No problems noted. Father No problems noted. Social History Household Members: Family Housing: Apartment Housing Other:: duplex Are you a primary child care center administrator to a significant other at home: No Do you presently have visiting nurse or other home services: No Alcohol intake: current Alcohol intake frequency: does not drink Patient Tobacco Use Status: Never used Tobacco e-Cigarette/Vaping Use: Never Used Second Hand Smoke Exposure: No service: No Current occupational status: disabled Sexual orientation: Straight/Heterosexual Gender identity: Female Cognitive needs: No Hearing needs: No Vision needs: Yes (Glasses) Female Reproductive History Menstrual Age of Menarche: 14 Review of Systems Const All systems reviewed & are unremarkable except as noted in HPI and below Reports as per HPI and Reports no additional complaints GI Reports no additional complaints Reports no additional complaints Assessment & Plan Assessment & Plan (1) Abnormal uterine bleeding (AUB): Code(s): N93.9 - Abnormal uterine and vaginal bleeding, unspecified Category: Medical Plan: Discussed with the patient the results of the work up done and options of treatment including Lysteda, BCP's, Mirena IUD, endometrial ablation and hysterectomy. All pros, cons, risks and benefits if each option was discussed with the patient and the patient decided to think about it and get back to us. All questions answered the patient verbalized understanding. (2) Uterine myoma: Code(s): D25.9 - Leiomyoma of uterus, unspecified Category: Medical Plan: The patient is scheduled for ultrasound follow-up appointment in few months. Coding Level of Care Code Est Pt Level 3 (09184) Diagnoses Abnormal uterine bleeding (AUB) N93.9 Uterine myoma D25.9
== END 2024-12-24 11:23 | disposition home or self-care (01) ==
LOC: HO.HWS 11:04
PROVIDERS: Visit Provider Obstetrics & Gynecology
DX: N93.9 Abnormal uterine and vaginal bleeding, unspecified (principal); D25.9 Leiomyoma of uterus, unspecified
CPT/HCPCS: 99213

== ENCOUNTER → 2025-01-01 15:32 | Outpatient (BNV) | payer OTHER, SELFPAY | PROVIDERS: Visit Provider Internal Medicine Medical Oncology | DX: C83.5 Lymphoblastic (diffuse) lymphoma (principal); Z92.21 Personal history of antineoplastic chemotherapy; Z92.3 Personal history of irradiation | CPT/HCPCS: 99204 ==

== ENCOUNTER 2025-01-01 16:50 | Outpatient (REF) | payer OTHER, SELFPAY ==
--- NOTE | ~2025-01-01 | XR_ITS ---
EXAMINATION: XR CHEST CLINICAL INFORMATION: Shortness of breath. T-cell lymphoma. COMPARISON: October 11, 2017 TECHNIQUE: 2 views of the chest were obtained. FINDINGS: No significant abnormality is noted involving the heart, lungs, mediastinum, bony thorax or soft tissues. XR/XR chest 2V IMPRESSION: No interval change, no acute disease Electronically signed by: Noah Ayers MD 01/01/2025 05:15 PM EDT
== END 2025-01-01 16:51 | disposition home or self-care (01) ==
LOC: HO.XRAY 16:50
PROVIDERS: Visit Provider Internal Medicine Medical Oncology
DX: R06.02 Shortness of breath (principal)
CPT/HCPCS: 71046

== ENCOUNTER → 2025-01-01 16:53 | Outpatient (BNV) | payer OTHER, SELFPAY | PROVIDERS: Visit Provider Radiology Diagnostic Radiology | DX: R06.02 Shortness of breath (principal); C84.48 Peripheral T-cell lymphoma, not elsewhere classified, lymph nodes of multiple sites | CPT/HCPCS: 71046 ==

== ENCOUNTER → 2025-03-25 12:38 | Outpatient (REF) | payer OTHER, SELFPAY ==
--- NOTE | 2025-03-25 12:42 | CA_ITS ---
Transthoracic Echocardiogram Patient (Last, First, Middle): Haley Horton, Gender: Female Date of : 1975 Age: 49 Procedure Date: 03/25/2025 Procedure Type: Transthoracic Echocardiogram Location: OP Height: 167.64 cm Weight: 88. 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 The calculated ejection fraction is 43% by biplane method. - No obvious valvular pathology seen on this study. Findings Procedure Information Contrast agent, definity, is being given per protocol without apparent complications. Left Ventricle Normal left ventricular cavity size. There is normal left ventricular wall thickness. The left ventricular systolic function is mildly decreased. The calculated ejection fraction is 43% by biplane method. There is mild global hypokinesis. Diastolic function is normal for age. LV peak GLS -14.3%. Right Ventricle Normal right ventricular cavity size. There is mildly decreased right ventricular systolic function. Atria Both atria are normal in size. Aortic Valve There is a normal trileaflet aortic valve. There is no aortic valve stenosis. There is no aortic valve regurgitation. Mitral Valve The mitral valve appears normal. There is no mitral valve regurgitation. There is no mitral valve stenosis. Pulmonic Valve The pulmonic valve is likely normal. Tricuspid Valve There is trace tricuspid valve regurgitation. There is no evidence of pulmonary hypertension. Great Vessels The asc aorta and aortic arch are normal in size. Venous The inferior vena cava is normal in size and collapses less than 50% with inspiration. Pericardium/Pleural There is no evidence of pericardial effusion. Prior Study Comparison No prior study available for comparison. Recommendations, Care & Conclusions No obvious valvular pathology seen on this study. Measurements 2D Linear Measurements IVSd: 0.72 0.6-0.9/0.6-1.0 cm LVIDd: 4.82 3.9-5.3/4.2-5.9 cm LVIDd Index: 2.45 2.4-3.2/2.2-3.1 cm/m2 LVIDs: 3.77 2.0-3.6 cm LVPWd: 0.77 0.7-1.1 cm LA Diam: 3.20 2.7-3.8/3.0-4.0 cm LAIDs Index: 1.62 1.5-2.3 cm/m2 LV Mass: 144.09 67-162/88-224 g LV Mass Index: 73.14 43-95/49-115 g/m2 LVOT Diam: 2.20 3.0+(-)1.3 cm 2D Systolic Function EF 4C: 44.40 >55% EF 2C: 42.00 >55% EF BiP: 42.70 >55% Mitral Valve MV Pk E: 0.30 MV PK A: 0.46 MV Decel Time: 161.00 E/A: 0.70 E'Lateral: 8.38 E'Medial: 6.64 E/E' Med: 4.60 E/E' Lat: 3.60 PHT: 47.00 MVA PHT: 4.68 Decel [place]: 1.89 Aortic Valve AoV Pk Ap: 1.10 AoV Mn Ap: 0.79 AoV VTI: 0.19 AoV Pk Grad: 5.00 Aov Mn Grad: 3.00 JULIETTE Cont.VTI: 3.20 LVOT LVOT Pk Ap: 0.95 LVOT Mn Ap: 0.56 LVOT VTI: 0.16 LVOT Pk Grad: 4.00 LVOT Mn Grad: 2.00 LVOT Diam: 2.20 LVOT Area: 3.80 Diastolic Function MV Pk E: 0.30 MV Pk A: 0.46 E/A: 0.70 E'Medial: 6.64 E/E' Med: 4.60 E' Laterial: 8.38 E/E' Lat: 3.60 Right Ventricle TAPSE (mm): 15.40 TVS' Ap: 8.81 Tricuspid Valve RA Press: 3.00 Great Vessels Aorta Sinus of Valsalva: 2.95 2.0-3.5 cm Ao Asc: 2.90 2.1-3.4 cm Ao Arch: 2.60 Updated in Other Vendor System with Status of Final Aaron Allen MD electronically signed on 03/27/2025 12:47:44 PM with status of Final
== END ==
LOC: HO.CARD 12:38
PROVIDERS: Visit Provider Internal Medicine Medical Oncology
DX: C83.50 Lymphoblastic (diffuse) lymphoma, unspecified site (principal)
CPT/HCPCS: 93306; Q9957

== ENCOUNTER → 2025-03-25 12:42 | Outpatient (BNV) | payer OTHER, SELFPAY | PROVIDERS: Visit Provider Internal Medicine | DX: Z85.6 Personal history of leukemia (principal) | CPT/HCPCS: 93306; 93356 ==